=== PATIENT | female | born 1940 | race Caucasian/White ===

== ENCOUNTER 2018-02-19 19:21 | Inpatient (IN) | payer MEDICARE, OTHER ==
--- NOTE | 2018-02-19 19:37 | PDOC ---
Rapid Medical Evaluation Time Seen by Provider: 02/19/18 19:31 Medical Evaluation: 02/19/18 19:32 I have performed a brief in-person evaluation of this patient. The patient presents with a chief complaint of: abd pain w/ n/v/, fever and anorexia x 4 days. H/o IDDM, HTN and HLD Pertinent physical exam findings:Febrile to 100.5 w/ ttp to LLQ I have ordered the following:labs The patient will proceed to the ED for further evaluation. Discharge Disposition - Diagnosis Abdominal pain Qualifiers: Abdominal location: left lower quadrant Qualified Code(s): R10.32 - Left lower quadrant pain - Referrals - Patient Instructions - Post Discharge Activity
[2018-02-19 20:00] LABS: BASO % 0.2 % (0-2.0); EOS % 0.6 % (0-4.5); HEMATOCRIT 34.5 % (32.4-45.2); HEMOGLOBIN 11.5 GM/dL (10.7-15.3); LYMPH % 6.5 % (8-40); MCH 30.2 pg (25.7-33.7); MCHC 33.5 g/dl (32.0-36.0); MEAN CELL VOLUME 90.2 fl (80-96); MEAN PLT VOLUME 7.3 fl (7.5-11.1); MONO % 9.3 % (3.8-10.2); NEUT % 83.4 % (42.8-82.8); PLATELET COUNT 222 K/MM3 (134-434); RBC 3.82 M/mm3 (3.60-5.2); RDW 13.1 % (11.6-15.6)
[2018-02-19 20:26] LABS: ALBUMIN 2.3 g/dl (3.4-5.0); ALK PHOS 268 U/L (45-117); ANION GAP 8 (8-16); BILIRUBIN,TOTAL 0.4 mg/dL (0.2-1.0); BLOOD UREA NITROGEN 29 mg/dL (7-18); CHLORIDE 96 mmol/L (98-107); CO2 27 mmol/L (21-32); CREATININE 1.6 mg/dL (0.55-1.02); GLUCOSE,RANDOM 148 mg/dL (74-106); LIPASE 164 U/L (73-393); SGPT/ALT 48 U/L (12-78); SODIUM 131 mmol/L (136-145); TOT PROT 6.4 g/dl (6.4-8.2)
[2018-02-19 20:27] LABS: POTASSIUM 4.4 mmol/L (3.5-5.1); SGOT/AST 102 U/L (15-37)
--- NOTE | 2018-02-19 21:07 | PDOC ---
Attending Attestation - ED Attending Attestation I have performed the following: I have examined & evaluated the patient, The case was reviewed & discussed with the resident, I agree w/resident's findings & plan, Exceptions are as noted - Medical Decision Making 02/19/18 21:50 Documentation prepared by Amita Kessler, acting as medical coding auditor for Connie Cain MD. <Amita Kessler - Last Filed: 02/19/18 21:50> - HPI HPI: 02/20/18 01:31 pt presents to the ED complaining of generalized weakness and maliase, accompanied by mild dysuria. family reports that patient has severely decreased appetite, although she doesnt have nausea or vomiting. Febrile in the ED. - Physicial Exam PE: 02/20/18 01:34 Agree with resident exam. Pt is alert and in no acute distress. Lungs are clear. Abdomen is soft, non tender and non distended. 02/20/18 01:35 - Medical Decision Making 02/20/18 01:35 Pt presents to the Ed complaining of weakness and generalized malaise. Febrile. Will check labs and Ua, treat with Iv antibiotics and admit to medicine. <Connie Cian - Last Filed: 02/20/18 01:41>
[2018-02-19] MEDS ORDERED: SODIUM CHLORIDE 1,000 ML IV STA (21:14)
--- NOTE | 2018-02-19 22:37 | PDOC ---
History of Present Illness - General Chief Complaint: Pain Stated Complaint: FATIGUE/CYST Time Seen by Provider: 02/19/18 19:31 History Source: Patient Exam Limitations: No Limitations - History of Present Illness Initial Comments: 02/19/18 22:56 77F with H/o IDDM, HTN and HLD presents with abd pain w/ n/v/, fever and anorexia and x 4 days. Also complains of little ball in abdomen that comes and go with bowel movement. Last fingerstick at home was 258 despite 4 days anorexia. Past History - Past Medical History Allergies/Adverse Reactions: Allergies Allergy/AdvReac Type Severity Reaction Status Date / Time No Known Allergies Allergy Verified 02/19/18 19:34 - Suicide/Smoking/Psychosocial Hx Smoking History: Never smoked Review of Systems - Review of Systems Able to Perform ROS?: Yes Constitutional: Yes: Fever, Loss of Appetite HEENTM: No: Symptoms Reported Respiratory: No: Symptoms reported Cardiac (ROS): No: Symptoms Reported ABD/GI: No: Symptoms Reported : Yes: Dysuria *Physical Exam - Vital Signs Last Vital Signs Temp Pulse Resp BP Pulse Ox 100.5 F H 91 H 18 108/66 99 02/19/18 19:35 02/19/18 19:35 02/19/18 19:35 02/19/18 19:35 02/19/18 19:35 - Physical Exam General Appearance: Yes: Disheveled, Moderate Distress HEENT: positive: EOMI, NARAYAN Respiratory/Chest: positive: Lungs Clear, Normal Breath Sounds. negative: Chest Tender, Respiratory Distress Cardiovascular: positive: Regular Rhythm, Regular Rate, S1, S2 Gastrointestinal/Abdominal: positive: Normal Bowel Sounds, Flat, Soft. negative : Tender Musculoskeletal: positive: Normal Inspection. negative: CVA Tenderness Integumentary: positive: Normal Color, Dry, Warm ED Treatment Course - LABORATORY CBC & Chemistry Diagram: 02/19/18 19:51 02/19/18 19:51 - ADDITIONAL ORDERS Additional order review: Laboratory Results 02/19/18 02/19/18 21:25 19:51 Sodium 131 L Potassium 4.4 Chloride 96 L Carbon Dioxide 27 Anion Gap 8 BUN 29 H Creatinine 1.6 H Creat Clearance w eGFR 31.17 Random Glucose 148 H Lactic Acid 1.8 Calcium 8.0 L Total Bilirubin 0.4 AST 102 H ALT 48 Alkaline Phosphatase 268 H Total Protein 6.4 Albumin 2.3 L Lipase 164 02/19/18 19:51 RBC 3.82 MCV 90.2 MCHC 33.5 RDW 13.1 MPV 7.3 L Neutrophils % 83.4 H Lymphocytes % 6.5 L Monocytes % 9.3 Eosinophils % 0.6 Basophils % 0.2 - RADIOLOGY Radiology Studies Ordered: Category Date Time Status CHEST X-RAY PORTABLE* [RAD] Stat Radiology 02/19/18 21:14 Ordered - Medications Given in the ED: ED Medications Discontinued Medications Generic Name Dose Route Start Last Admin Trade Name Freq PRN Reason Stop Dose Admin Sodium Chloride 1,000 mls @ 1,000 mls/hr 02/19/18 21:14 02/19/18 21:31 Normal Saline - IV 02/19/18 22:13 1,000 mls/hr ASDIR STA Administration Medical Decision Making - Medical Decision Making 02/20/18 04:27 Patient accepted straight catheterization and subsequently Lee insertion after previously refusing it. 02/20/18 06:28 Patient showed fever and elevated white count without a source (before urine could be obtained) Started fluids and abx 02/20/18 06:29 Admit to med surg *DC/Admit/Observation/Transfer Diagnosis at time of Disposition: Abdominal pain Qualifiers: Abdominal location: left lower quadrant Qualified Code(s): R10.32 - Left lower quadrant pain - Discharge Dispostion Decision to Admit order: Yes - Referrals - Patient Instructions - Post Discharge Activity
[2018-02-20] MEDS ORDERED: ACETAMINOPHEN 500 MG TABLET (FP) PO ONE (02:14)
[2018-02-20] MEDS ORDERED: SODIUM CHLORIDE 0.9% 500 ML INFUS.BAG IV ONE (02:14)
[2018-02-20] MEDS ORDERED: ACETAMINOPHEN 325 MG TABLET (FP) PO ONE (02:15)
[2018-02-20] MEDS ORDERED: ACETAMINOPHEN 325 MG TABLET (FP) ONE (02:15)
[2018-02-20 02:46] LABS: ACANTHOCYTES 0; ANISOCYTOSIS 0; HELMET CELLS 0; HOWELL-JOLLY BODIES 0; MACROCYTOSIS 0; OVALOCYTE 0; PLATELET ESTIMATE DECREASED; ROULEAU 0; SICKELED CELLS 0; TARGET CELLS 0; TEAR DROP CELLS 0; TOXIC GRANULATION 0
[2018-02-20] MEDS ORDERED: cefTRIAXone SODIUM 1 GM VIAL ONE ×2 (04:13→17:02)
--- NOTE | 2018-02-20 04:51 | PN ---
Teaching Attending Note Name of Resident: Trudi Damon ATTENDING PHYSICIAN STATEMENT I saw and evaluated the patient. I reviewed the resident's note and discussed the case with the resident. I agree with the resident's findings and plan as documented. SUBJECTIVE: Patient is a 77 year old Polish-speaking woman who jsu came from [facility], with history of insulin-treated DM, HTN and HLD complaining of dysuria for 3 months?, and nausea. She has mild lower abdominal pain, recent fever and feels like there is a little ball in her abdomen that comes and goes with bowel movement. Her last BM was yesterday. No vomiting or diarrhea. Noted to have urinary retention in the ER. OBJECTIVE: Alert and in no acute distress. Vital Signs Period Temp Pulse Resp BP Sys/[place] Pulse Ox Last 24 Hr 98.3 F-101.6 F 66-91 18-18 108-128/49-69 98-99 HEENT: No Jaundice, eye redness or discharge, PERRLA, EOMI. Normocephalic, atraumatic. External ears are normal and hearing is grossly intact. No nasal discharge. Neck: Supple, nontender. No palpable adenopathy or thyromegaly. No JVD Chest: Good effort. Clear to auscultation and percussion. Heart: Regular. No S3, rub or murmur Abdomen: Suprapubic fullness, nontender;, soft abdomen, nontender and no HSM. No rebound or guarding. Normoactive bowel sounds. Ext: Peripheral pulses intact. No leg edema, but mild LLE tenderness. Skin: Warm and dry. No petechiae, rash or ecchymosis. Neuro: Alert. Oriented person and place. CN 2-12 grossly intact. Sensation grossly intact in all four extremities and DTR are symmetric. Abnormal Lab Results 02/19/18 02/19/18 19:51 19:51 WBC 15.0 H MPV 7.3 L Neutrophils % 83.4 H Lymphocytes % 6.5 L Monocytes % (Manual) 2 L Sodium 131 L Chloride 96 L BUN 29 H Creatinine 1.6 H Random Glucose 148 H Calcium 8.0 L AST 102 H Alkaline Phosphatase 268 H Albumin 2.3 L ASSESSMENT AND PLAN: 1. Sepsis due to UTI - Her urinalysis is pending but her urine is very cloudy. She got IV Rocephin in the ER - will continue same at 1 gm q 24 hours pending culture results. Continue IV NS at 100 ml/hour - and reassess frequently to avoid fluid overload. 2. EVA and Urinary retention - Produced 2 liters of urine upon insertion of reyes. May explain the EVA. Will continue to monitor BMP, avoid nephrotoxic drugs and consult nephrology and urology. 3. Suprapubic fullness - Will get CT scan of abdomen and pelvis. 4. DM - Will do sliding scale insulin coverage. Family ahs been asked to bring in her medications since we do not have her list of medications. 5. Mild LLE tenderness - Doppler to rule out DVT. 6. DVT prophylaxis - Heparin 5000u sq tid 7. Advance directives - Full code
[2018-02-20 04:57] LABS: URINE APPEARANCE CLOUDY; URINE BILIRUBIN NEGATIVE (<2.0 mg/dL); URINE COLOR YELLOW; URINE GLUCOSE (UA) 3+ (NEGATIVE); URINE KETONE TRACE (NEGATIVE); URINE NITRITE NEGATIVE (NEGATIVE); URINE UROBILINOGEN NEGATIVE mg/dL (0.2-1.0)
[2018-02-20 04:59] LABS: URINE LEUK ESTERASE 3+ (NEGATIVE); URINE PROTEIN 2+ (NEGATIVE)
[2018-02-20] MEDS ORDERED: SODIUM CHLORIDE 1,000 ML IV SCH (06:00)
[2018-02-20 06:10] LABS: URINE MUCUS RARE
--- NOTE | 2018-02-20 06:15 | HP ---
CHIEF COMPLAINT: dysuria x 3 months PCP: From [place] HISTORY OF PRESENT ILLNESS: 77 y/o F with PMH DM, HTN, HLD, who presents to the ED c/o dysuria, fever, and nausea. As per pt, over the past three months she has had dysuria. She is unable to quantify whether she had frequency during this time. Granddaughter explains that while pt was in [place], she was seen by various physicians who were "unable to find out what was wrong" with her. Pt states that she had blood taken on numerous occasions for this reason and had an "infection" in her urine before. More recently, pt with nausea (without emesis), fever, decreased appetite, and diffuse abdominal pain over the last 2-3 days. She also c/o new "left corey pain." Denies JAUREGUI, chills, SOB, chest pain or pressure, or changes in bowel function. Pt lives in [place] and has been in the [facility] for the past 1-2 months visiting family. Granddaughter states that she is leaving to go back home on 08/31. ER course was notable for: (1) Rocephin 1g x 1 (2) NS (3) Tylenol 1g x2 (4) urinary retention, reyes Recent Travel: came to the [facility] for vacation 1-2 months prior PAST MEDICAL HISTORY: as above PAST SURGICAL HISTORY: denies Social History: Smoking: denies Alcohol: denies Drugs: denies Family History: non-contributory Allergies No Known Allergies Allergy (Verified 02/19/18 19:34) HOME MEDICATIONS: Pt is on no home medications as per pt and granddaughter. REVIEW OF SYSTEMS CONSTITUTIONAL: +fever, decreased appetite Absent: chills, diaphoresis, generalized weakness, malaise, weight change HEENT: Absent: rhinorrhea, nasal congestion, throat pain, throat swelling, difficulty swallowing, mouth swelling, ear pain, eye pain, visual changes CARDIOVASCULAR: Absent: chest pain, syncope, palpitations, irregular heart rate, lightheadedness , peripheral edema RESPIRATORY: Absent: cough, shortness of breath, dyspnea with exertion, orthopnea, wheezing, stridor, hemoptysis GASTROINTESTINAL: Absent: abdominal pain, abdominal distension, nausea, vomiting, diarrhea, constipation, melena, hematochezia GENITOURINARY: +dysuria Absent: frequency, urgency, hesitancy, hematuria, flank pain, genital pain MUSCULOSKELETAL: +LLE pain Absent: myalgia, arthralgia, joint swelling, back pain, neck pain SKIN: Absent: rash, itching, pallor HEMATOLOGIC/IMMUNOLOGIC: Absent: easy bleeding, easy bruising, lymphadenopathy, frequent infections ENDOCRINE: Absent: unexplained weight gain, unexplained weight loss, heat intolerance, cold intolerance NEUROLOGIC: Absent: headache, focal weakness or paresthesias, dizziness, unsteady gait, seizure, mental status changes, bladder or bowel incontinence PSYCHIATRIC: Absent: anxiety, depression, suicidal or homicidal ideation, hallucinations. PHYSICAL EXAMINATION Vital Signs - 24 hr 02/19/18 02/20/18 02/20/18 19:35 02:38 05:40 Temperature 100.5 F H 101.6 F H 98.3 F Pulse Rate 91 H 66 Pulse Rate [ 83 Apical] Respiratory 18 18 18 Rate Blood Pressure 108/66 128/69 Blood Pressure 118/49 [Right Arm] O2 Sat by Pulse 99 98 98 Oximetry (%) GENERAL: Resting comfortably in bed. Granddaughter at bedside. Awake, alert, and fully oriented, in no acute distress. HEAD: Normal with no signs of trauma. EYES: Pupils equal, round and reactive to light, extraocular movements intact, sclera anicteric, conjunctiva clear. EARS, NOSE, THROAT: Ears normal, nares patent, oropharynx clear without exudates. Moist mucous membranes. NECK: Normal range of motion, supple without lymphadenopathy LUNGS: Breath sounds equal, clear to auscultation bilaterally. No wheezes, and no crackles. No accessory muscle use. HEART: Regular rate and rhythm, normal S1 and S2 without murmur, rub or gallop. ABDOMEN: Soft, nontender, not distended, +fullness in suprapubic region, normoactive bowel sounds, no guarding, no rebound LOWER EXTREMITIES: 2+ dp pulses, warm, well-perfused. +diffuse LLE tenderness. No peripheral edema. NEUROLOGICAL: Cranial nerves II-XII intact. Normal speech. Azeri speaking GENITOURINARY: +reyes, with yellow serous urine, and collection of pus PSYCHIATRIC: Cooperative. Good eye contact. SKIN: Warm, dry, normal turgor Laboratory Results 02/19/18 19:51 WBC 15.0 H Hgb 11.5 Hct 34.5 Plt Count 222 Neutrophils % 83.4 H 02/19/18 02/19/18 19:51 19:51 Sodium 131 L Potassium 4.4 Chloride 96 L Carbon Dioxide 27 BUN 29 H Creatinine 1.6 H Alkaline Phosphatase 268 H Troponin I < 0.02 Albumin 2.3 L Lipase 164 02/20/18 04:48 Urine Protein 2+ H Urine Glucose (UA) 3+ H Urine Ketones Trace H Urine Blood 2+ H Urine Nitrite Negative Urine Bilirubin Negative Urine Urobilinogen Negative Ur Leukocyte Esterase 3+ H Urine WBC (Auto) Pending Microbiology 02/20/18: Urine cx - pending 02/20/18: Blood cx-pending Imaging 02/19/17 CXR: cardiomegaly, possible mild congestion ASSESSMENT/PLAN: 77 y/o F with PMH DM, HTN, HLD, who presents to the ED c/o dysuria, fever, and nausea. Pt admitted for sepsis 2/2 UTI, r/o alternate abdominal pathology. #Sepsis 2/2 UTI -febrile to 100.5F, WBC ct 15k, with dysuria -UA 3+ leuk esterase, 2+ blood, UA WBC pending -received rocephin 1g x 1 in ED -will continue rocephin 1g IVPB qd -Lactic acid WNL (1.8) -IVF -F/u ucx, blood cx #EVA possible 2/2 poor PO intake, pre-renal -Cr 1.6 -unclear what pt's baseline is -may be related to urinary retention -Nephro consult- Dr. Oliveira -Urology consult- Dr. Chaudhary #Urinary retention -Pt with suprapubic fullness -will F/u CTAP w/o contrast to determine if alternate abd pathology -?may explain multiple months of dysuria -?r/o fistula formation -currently with reyes to prevent increased retention #LLE TTP, r/o DVT -Pt with increased sensitivity in LLE, new (+) varicose veins -F/u duplex LLE #DM -Pt not on medication -F/u A1c -ISS ACHS -BGM #HTN-controlled #HLD -F/u lipid profile #F/E/N IV NS 100 cc/hr continue to follow lytes sodium controlled, diabetic diet #PPX Hep 5000 U SQ TID #Dispo admit to med-surg Visit type - Emergency Visit Emergency Visit: Yes ED Registration Date: 02/20/18 Care time: The patient presented to the Emergency Department on the above date and was hospitalized for further evaluation of their emergent condition. - New Patient This patient is new to me today: Yes Date on this admission: 02/20/18 - Critical Care Critical Care patient: No Hospitalist Screening - Colonoscopy Questionnaire Colonoscopy Questionnaire: Colonoscopy Questionnaire - Patient: 50 - 75 years old and never had a screening colonoscopy: Unknown History of colon or rectal polyps, or CA: Unknown History of IBD, Crohn's disease or UC: Unknown History of abdominal radiation therapy as a child: Unknown - Relative: 1 with colon or rectal CA, or polyps at age 60 or younger: Unknown Colon or rectal CA diagnosed at age 45 or younger: Unknown Multiple relatives with colon or rectal CA: Unknown - Outcome: Screening Result: Negative Screen
[2018-02-20] MEDS ORDERED: CEFTRIAXONE 1 GM/50 ML BAG ONE (06:27)
[2018-02-20] MEDS ORDERED: HEPARIN NA (PORCINE) 5,000 UNITS/ML 1ML VIAL ONE (06:27)
[2018-02-20] MEDS: HEPARIN NA (PORCINE) 5,000 UNITS/ML 1ML VIAL SQ SCH ×3 (06:37→22:17)
[2018-02-20 08:37] LABS: BASO % 0.3 % (0-2.0); EOS % 1.2 % (0-4.5); LYMPH % 6.6 % (8-40); MCH 30.5 pg (25.7-33.7); MCHC 33.4 g/dl (32.0-36.0); MEAN CELL VOLUME 91.3 fl (80-96); MEAN PLT VOLUME 7.5 fl (7.5-11.1); MONO % 7.1 % (3.8-10.2); NEUT % 84.8 % (42.8-82.8); PLATELET COUNT 185 K/MM3 (134-434); RBC 3.61 M/mm3 (3.60-5.2); RDW 13.5 % (11.6-15.6); WHITE BLOOD COUNT 12.8 K/mm3 (4.0-10.0)
[2018-02-20 09:10] LABS: CHOLESTEROL < 50 mg/dL (50-200); TRIGLYCERIDES 128 mg/dL (35-160)
[2018-02-20 09:11] LABS: ANION GAP 10 (8-16); BLOOD UREA NITROGEN 28 mg/dL (7-18); CALCIUM 7.8 mg/dL (8.5-10.1); CHLORIDE 100 mmol/L (98-107); CO2 23 mmol/L (21-32); CREATININE 1.3 mg/dL (0.55-1.02); GLUCOSE,RANDOM 187 mg/dL (74-106); MAGNESIUM 1.9 mg/dL (1.8-2.4); POTASSIUM 3.9 mmol/L (3.5-5.1); SODIUM 133 mmol/L (136-145)
[2018-02-20 09:12] LABS: PHOSPHOROUS 3.2 mg/dL (2.5-4.9)
[2018-02-20 09:53] LABS: HDL CHOLESTEROL 9 mg/dL (40-60)
--- NOTE | 2018-02-20 10:11 | PN ---
Physical Exam: SUBJECTIVE: Patient seen and examined Patient is feeling cold, otherwise has no complains. covered under thick blanket. OBJECTIVE: Vital Signs Temperature 98 F 02/20/18 07:58 Pulse Rate 20 L 02/20/18 07:58 Respiratory Rate 64 H 02/20/18 07:58 Blood Pressure 123/62 02/20/18 07:58 O2 Sat by Pulse Oximetry (%) 97 02/20/18 08:19 GENERAL: The patient is awake, alert, and fully oriented, in no acute distress. HEAD: Normal with no signs of trauma. EYES: PERRL, extraocular movements intact, sclera anicteric, conjunctiva clear. ENT: Ears normal, oropharynx clear without exudates, moist mucous membranes. NECK: Trachea midline, full range of motion, supple. LUNGS: Breath sounds equal, clear to auscultation bilaterally, no wheezes, no crackles, no accessory muscle use. HEART: Regular rate and rhythm, S1, S2 without murmur, rub or gallop. ABDOMEN: Soft, nontender, nondistended, normoactive bowel sounds, no guarding, no rebound, no hepatosplenomegaly, no masses. EXTREMITIES: 2+ pulses, warm, well-perfused, no edema. NEUROLOGICAL: Cranial nerves II through XII grossly intact. Normal speech, gait not observed. PSYCH: Normal mood, normal affect. SKIN: Warm, dry, normal turgor, no rashes or lesions noted CBCD WBC 12.8 K/mm3 (4.0-10.0) H 02/20/18 07:55 RBC 3.61 M/mm3 (3.60-5.2) 02/20/18 07:55 Hgb 11.0 GM/dL (10.7-15.3) 02/20/18 07:55 Hct 33.0 % (32.4-45.2) 02/20/18 07:55 MCV 91.3 fl (80-96) 02/20/18 07:55 MCHC 33.4 g/dl (32.0-36.0) 02/20/18 07:55 RDW 13.5 % (11.6-15.6) 02/20/18 07:55 Plt Count 185 K/MM3 (134-434) 02/20/18 07:55 MPV 7.5 fl (7.5-11.1) 02/20/18 07:55 CMP Sodium 133 mmol/L (136-145) L 02/20/18 07:55 Potassium 3.9 mmol/L (3.5-5.1) 02/20/18 07:55 Chloride 100 mmol/L (98-107) 02/20/18 07:55 Carbon Dioxide 23 mmol/L (21-32) 02/20/18 07:55 Anion Gap 10 (8-16) 02/20/18 07:55 BUN 28 mg/dL (7-18) H 02/20/18 07:55 Creatinine 1.3 mg/dL (0.55-1.02) H 02/20/18 07:55 Creat Clearance w eGFR 31.17 (>60) 02/19/18 19:51 Random Glucose 187 mg/dL (74-106) H 02/20/18 07:55 Calcium 7.8 mg/dL (8.5-10.1) L 02/20/18 07:55 Total Bilirubin 0.4 mg/dL (0.2-1.0) 02/19/18 19:51 AST 102 U/L (15-37) H 02/19/18 19:51 ALT 48 U/L (12-78) 02/19/18 19:51 Alkaline Phosphatase 268 U/L (45-117) H 02/19/18 19:51 Total Protein 6.4 g/dl (6.4-8.2) 02/19/18 19:51 Albumin 2.3 g/dl (3.4-5.0) L 02/19/18 19:51 CARDIAC ENZYMES Troponin I < 0.02 ng/ml (0.00-0.05) 02/19/18 19:51 Active Medications Generic Name Dose Route Start Last Admin Trade Name Freq PRN Reason Stop Dose Admin Heparin Sodium (Porcine) 5,000 unit 02/20/18 06:00 02/20/18 06:37 Heparin - SQ 5,000 unit TID [facility] Administration Ceftriaxone Sodium 1 gm/ 50 mls @ 100 mls/hr 02/21/18 06:00 Dextrose IVPB DAILY@0600 DONG Sodium Chloride 1,000 mls @ 100 mls/hr 02/20/18 06:46 Normal Saline - IV ASDIR [facility] Urine Test Results Urine Color Yellow 02/20/18 04:48 Urine Appearance Cloudy 02/20/18 04:48 Urine pH 6.0 (5.0-8.0) 02/20/18 04:48 Ur Specific [place] 1.010 (1.001-1.035) 02/20/18 04:48 Urine Protein 2+ (NEGATIVE) H 02/20/18 04:48 Urine Glucose (UA) 3+ (NEGATIVE) H 02/20/18 04:48 Urine Ketones Trace (NEGATIVE) H 02/20/18 04:48 Urine Blood 2+ (NEGATIVE) H 02/20/18 04:48 Urine Nitrite Negative (NEGATIVE) 02/20/18 04:48 Urine Bilirubin Negative (<2.0 mg/dL) 02/20/18 04:48 Ur Leukocyte Esterase 3+ (NEGATIVE) H 02/20/18 04:48 Urine Mucus Rare 02/20/18 04:48 Microbiology: 02/20/18: Urine cx - pending ;02/20/18: Imagin02/19/17 CXR: cardiomegaly, possible mild congestion ASSESSMENT/PLAN: Patient is a 77 y/o F with PMHx DM, HTN, HLD, who presents to the ED c/o dysuria , fever, and nausea. Pt is admitted for sepsis with UTI. #Sepsis due to UTI on IV Rocephin increased the dose to 2gm IV daily since Bld cx is growing gram neg.bacilli , continue IVF, F/u ucx. #ARF on PO intake, Cr 1.6-->1.3 may be related to urinary retention; Nephro consult- Dr. Oliveira ,Urology consult- Dr. Chaudhary #Urinary retention with suprapubic fullness; as per urology , recommends that after her UTI is controlled that she is discharged either with reyes in place or that nursing teaches her clean intermittent self catheterization. #LLE duplex is negative #DM ; hemoglobin A1c 11.8 ;ISS ACHS; BGM #HTN-controlled #HLD F/u lipid profile PPX: Hep 5000 U SQ TID Visit type - Emergency Visit Emergency Visit: Yes ED Registration Date: 02/20/18 Care time: The patient presented to the Emergency Department on the above date and was hospitalized for further evaluation of their emergent condition. - New Patient This patient is new to me today: Yes Date on this admission: 02/20/18 - Critical Care Critical Care patient: No - Discharge Referral Referred to [facility] Med P.C.: No
[2018-02-20] MEDS: SODIUM CHLORIDE 1,000 ML IV SCH (10:51)
--- NOTE | 2018-02-20 11:25 | CONSULT ---
Consult Consult Specialty:: Nephrology ( Damon/ Tee) Reason for Consultation:: Acute kidney failure - History of Present Illness History of Present Illness: This is a 77 y/o F with PMH DM, HTN, HLD, who presented to the ED c/o dysuria, fever, and nausea. Reportedly she had dysuria for the past three months. While the pt was in [place], she was seen by various physicians who were "unable to find out what was wrong" with her. She was started on IV Abx with significant improvent of symptoms. Maintains good urine output. IV fluids well tolerated. - History Source History Provided By: Family Member Limitations to Obtaining History: Language Barrier - Past Medical History Cardio/Vascular: Yes: HTN Renal/: Yes: Renal Inusuff Musculoskeletal: Yes: Chronic low back pain - Alcohol/Substance Use Hx Alcohol Use: No - Smoking History Smoking history: Never smoked Have you smoked in the past 12 months: No Home Medications - Allergies Allergies/Adverse Reactions: Allergies Allergy/AdvReac Type Severity Reaction Status Date / Time No Known Allergies Allergy Verified 02/19/18 19:34 Family Disease History - Family Disease History Family History: Unable to Obtain Review of Systems - Review of Systems Constitutional: reports: Fever, Loss of Appetite, Weakness HENT: reports: No Symptoms Cardiovascular: denies: Chest Pain, Shortness of Breath Respiratory: denies: Cough Gastrointestinal: reports: Abdominal Pain. denies: Nausea, Rectal Bleeding Genitourinary: reports: Dysuria, Frequency, Urgency Musculoskeletal: reports: Back Pain Physical Exam Vital Signs: Vital Signs Temperature 98 F 02/20/18 07:58 Pulse Rate 20 L 02/20/18 07:58 Respiratory Rate 64 H 02/20/18 07:58 Blood Pressure 123/62 02/20/18 07:58 O2 Sat by Pulse Oximetry (%) 97 02/20/18 08:19 Constitutional: Yes: Anxious, Other ( speaking) Eyes: Yes: Conjunctiva Clear HENT: Yes: Atraumatic Neck: Yes: Trachea Midline Cardiovascular: Yes: Regular Rate and Rhythm, S1, S2 Respiratory: Yes: Regular, CTA Bilaterally Gastrointestinal: Yes: Normal Bowel Sounds, Soft Renal/: No: Bladder Distention, CVA Tenderness - Left, CVA Tenderness - Right , Hematuria Labs: CBC, BMP 02/20/18 07:55 02/20/18 07:55 Problem List - Problems (1) EVA (acute kidney injury) Code(s): N17.9 - ACUTE KIDNEY FAILURE, UNSPECIFIED (2) Diabetes mellitus Code(s): E11.9 - TYPE 2 DIABETES MELLITUS WITHOUT COMPLICATIONS (3) Abdominal pain Code(s): R10.9 - UNSPECIFIED ABDOMINAL PAIN Qualifiers: Abdominal location: left lower quadrant Qualified Code(s): R10.32 - Left lower quadrant pain (4) Hyperlipidemia Code(s): E78.5 - HYPERLIPIDEMIA, UNSPECIFIED (5) Hypertension Code(s): I10 - ESSENTIAL (PRIMARY) HYPERTENSION Assessment/Plan 77 y/o F with PMH DM, HTN, HLD, who presented with abdominal pain and dysuria. The patient started on IV fluids and IV antibiotics for possible urosepsis. Acute kidney Injury... Possibly related to the Septic process and the Renal hemodynamic changes. Suggest: IV hydration to continue. IV antibiotics as ordered. May not require extensive w/u. Will monitor the renal functions with you. Thank you. Meg Jose MD
--- NOTE | 2018-02-20 12:31 | CON.GU ---
Consult Consult Specialty:: Referred by:: medicine Reason for Consultation:: urinary retention, UTI - History of Present Illness Chief Complaint: urinary retention, UTI History of Present Illness: 77 year old woman who lives in [place] is admitted to the hospital who presented with complaints of abdominal pain and UTI. She was in urinary retention and the CT scan is consistent with a chronic neurogenic bladder with reflux. Reyes cath was placed with greater than 2 liters return. - History Source History Provided By: Family Member, Medical Record Limitations to Obtaining History: No Limitations - Past Medical History Cardio/Vascular: Yes: HTN Renal/: Yes: Renal Inusuff, Neurogenic Bladder, UTI Musculoskeletal: Yes: Chronic low back pain - Alcohol/Substance Use Hx Alcohol Use: No - Smoking History Smoking history: Never smoked Have you smoked in the past 12 months: No Home Medications - Allergies Allergies/Adverse Reactions: Allergies Allergy/AdvReac Type Severity Reaction Status Date / Time No Known Allergies Allergy Verified 02/19/18 19:34 Review of Systems - Review of Systems Constitutional: reports: Fever Gastrointestinal: reports: Abdominal Pain, Bloating Genitourinary: reports: Burning, Frequency, Incontinence Physical Exam- Vital Signs: Vital Signs Temperature 98 F 02/20/18 07:58 Pulse Rate 20 L 02/20/18 07:58 Respiratory Rate 64 H 02/20/18 07:58 Blood Pressure 123/62 02/20/18 07:58 O2 Sat by Pulse Oximetry (%) 97 02/20/18 08:19 Constitutional: Yes: Well Nourished, No Distress, Calm Respiratory: Yes: WNL, Regular, CTA Bilaterally Gastrointestinal: Yes: WNL, Normal Bowel Sounds Renal/: Yes: Reyes Present. No: Bladder Distention, CVA Tenderness - Left, CVA Tenderness - Right Labs: CBC, BMP 02/20/18 07:55 02/20/18 07:55 Imaging - Results Cat Scan: Report Reviewed Problem List - Problems (1) Neurogenic bladder Assessment/Plan: patient with a UTI and urinary retention consistent with a chronic neurogenic bladder. Patient lives in [place] and is visiting. Would recommend that after her UTI is controlled that she is discharged either with reyes in place or that nursing teaches her clean intermittent self catheterization. Code(s): N31.9 - NEUROMUSCULAR DYSFUNCTION OF BLADDER, UNSPECIFIED (2) EVA (acute kidney injury) Code(s): N17.9 - ACUTE KIDNEY FAILURE, UNSPECIFIED (3) UTI (urinary tract infection) Code(s): N39.0 - URINARY TRACT INFECTION, SITE NOT SPECIFIED
[2018-02-20] MEDS: INSULIN SLIDING SCALE (NOVOLOG) 1 VIAL SQ SCH ×3 (12:56→22:17)
[2018-02-20 13:25] VITALS: BMI 19.5
--- NOTE | 2018-02-20 14:37 | EKG ---
Test Reason : Blood Pressure : / mmHG Vent. Rate : 086 BPM Atrial Rate : 086 BPM P-R Int : 130 ms QRS Dur : 066 ms QT Int : 352 ms P-R-T Axes : 037 003 030 degrees QTc Int : 421 ms NORMAL SINUS RHYTHM LOW VOLTAGE QRS BORDERLINE ECG NO PREVIOUS ECGS AVAILABLE Confirmed by MD Elie, Gilbert ([id number]) on 02/20/2018 2:37:07 PM Referred By: Confirmed By:Gilbert Delgadillo MD
[2018-02-20] MEDS ORDERED: PNEUMOC 13-VAL CONJ-DIP CRM/PF 0.5 ML DISP.SYRIN IM ONE (15:00)
[2018-02-20] MEDS ORDERED: CEFTRIAXONE 1 GM in DEXTROSE 5%-WATER - 50 ML IVPB ONE (16:45)
[2018-02-20] MEDS ORDERED: DEXTROSE 5%-WATER - 50 ML IVPB ONE (17:02)
[2018-02-20] MEDS ORDERED: PT OWN MED DRAWER 7, Y5N ONE (20:56)
[2018-02-20] MEDS ORDERED: INSULIN (NOVOLOG) ASPART 100 UNITS/ML 10ML VIAL ONE (20:57)
[2018-02-21] MEDS ORDERED: DEXTROSE 5%-WATER 100 ML IVPB ONE (05:59)
[2018-02-21] MEDS ORDERED: CEFTRIAXONE 1 GM in DEXTROSE 5%-WATER - 50 ML IVPB SCH (06:00)
[2018-02-21] MEDS: CEFTRIAXONE 2 GM in DEXTROSE 5%-WATER 100 ML IVPB SCH (06:05)
[2018-02-21] MEDS: HEPARIN NA (PORCINE) 5,000 UNITS/ML 1ML VIAL SQ SCH ×3 (06:05→21:37)
[2018-02-21] MEDS: INSULIN SLIDING SCALE (NOVOLOG) 1 VIAL SQ SCH ×4 (06:07→21:37)
[2018-02-21] MEDS ORDERED: PT OWN MED DRAWER 7, Y5N ONE ×2 (06:50→17:02)
[2018-02-21 08:32] LABS: CHLORIDE 98 mmol/L (98-107); POTASSIUM 3.1 mmol/L (3.5-5.1); SODIUM 132 mmol/L (136-145)
[2018-02-21] MEDS: SODIUM CHLORIDE 1,000 ML IV SCH (08:39)
[2018-02-21 08:42] LABS: ALBUMIN 1.7 g/dl (3.4-5.0); ALK PHOS 223 U/L (45-117); ANION GAP 12 (8-16); BILIRUBIN,TOTAL 0.3 mg/dL (0.2-1.0); BLOOD UREA NITROGEN 19 mg/dL (7-18); CALCIUM 7.7 mg/dL (8.5-10.1); CO2 22 mmol/L (21-32); CREATININE 1.1 mg/dL (0.55-1.02); GLUCOSE,RANDOM 224 mg/dL (74-106); SGOT/AST 36 U/L (15-37); SGPT/ALT 34 U/L (12-78); TOT PROT 5.5 g/dl (6.4-8.2)
--- NOTE | 2018-02-21 09:40 | PN ---
<Harlan Mishra - Last Filed: 02/21/18 12:35> Physical Exam: SUBJECTIVE: Patient seen and examined at bedside. Granddaughter at bedside to translate. Pt feels better overall, no acute events overnight. No fevers, chills , abd pain. OBJECTIVE: Vital Signs Period Temp Pulse Resp BP Sys/[place] Pulse Ox Last 24 Hr 99.3 F-99.7 F 76-83 18-20 136-142/67-76 95 GENERAL: The patient is awake, alert, and fully oriented, in no acute distress. HEAD: Normal with no signs of trauma. EYES: extraocular movements intact ENT: Ears normal, nares patent. NECK: Trachea midline, full range of motion, supple. LUNGS: Breath sounds equal, clear to auscultation bilaterally HEART: Regular rate and rhythm, S1, S2 without murmur ABDOMEN: Soft, nontender, nondistended, normoactive bowel sounds EXTREMITIES: warm, well-perfused, no edema. NEUROLOGICAL:Normal speech, gait not observed. PSYCH: Normal mood, normal affect. SKIN: Warm, dry Laboratory Results - last 24 hr 02/20/18 02/20/18 02/20/18 07:55 07:55 12:12 PTT (Actin FS) 31.1 Sodium Potassium Chloride Carbon Dioxide Anion Gap BUN Creatinine Creat Clearance w eGFR POC Glucometer 293 Random Glucose Calcium Total Bilirubin AST ALT Alkaline Phosphatase Total Protein Albumin HDL Cholesterol 9 L 02/20/18 02/20/18 02/21/18 17:12 22:15 05:54 PTT (Actin FS) Sodium Potassium Chloride Carbon Dioxide Anion Gap BUN Creatinine Creat Clearance w eGFR POC Glucometer 200 247 206 Random Glucose Calcium Total Bilirubin AST ALT Alkaline Phosphatase Total Protein Albumin HDL Cholesterol 02/21/18 07:00 PTT (Actin FS) Sodium 132 L Potassium 3.1 L Chloride 98 Carbon Dioxide 22 Anion Gap 12 BUN 19 H Creatinine 1.1 H Creat Clearance w eGFR 48.04 POC Glucometer Random Glucose 224 H Calcium 7.7 L Total Bilirubin 0.3 D AST 36 ALT 34 Alkaline Phosphatase 223 H Total Protein 5.5 L Albumin 1.7 L HDL Cholesterol Active Medications Generic Name Dose Route Start Last Admin Trade Name Freq PRN Reason Stop Dose Admin Heparin Sodium (Porcine) 5,000 unit 02/20/18 06:00 02/21/18 06:05 Heparin - SQ 5,000 unit TID DONG Administration Sodium Chloride 1,000 mls @ 100 mls/hr 02/20/18 06:46 02/21/18 08:39 Normal Saline - IV 100 mls/hr ASDIR DONG Administration Ceftriaxone Sodium 2 gm/ 100 mls @ 200 mls/hr 02/21/18 06:00 02/21/18 06:05 Dextrose IVPB 200 mls/hr DAILY@0600 DONG Administration Insulin Aspart 1 vial 02/20/18 16:30 02/21/18 06:07 Novolog Vial Sliding Scale - SQ 2 units ACHS DONG Administration Protocol Potassium Chloride 40 meq 02/21/18 10:00 K-Dur - PO 02/21/18 10:01 ONCE ONE ASSESSMENT/PLAN: 77 y/o F with PMH DM, HTN, HLD, who presents to ER w/ c/o dysuria, fever, and nausea. Pt admitted for sepsis secondary to UTI. -Sepsis secondary to UTI -no fevers in last 24 hr, pt improving -c/w rocephin 2 g qd -ID consulted -BCx lactose fermenting gram neg bacilli -UCx pending -NS @ 100 ml/hr -EVA secondary to poor PO intake -Cr continues to improve, 1.1 today -will continue to monitor -Nephro on board -Urinary retention secondary to neurogenic bladder -Uro on board -Recs: Lee on d/c or will need nurse to teach her to do self- cathetherizations -DM -ISS, BGMs -LLE pain -negative for DVT -HTN -controlled at this time off meds -FEN -NS @ 100 ml/hr -K+ repleted, continue to monitor lytes -diabetic, sodium controlled diet -DVT ppx -Heparin 5000 units sq q8h -Dispo: -monitor on m/s Visit type - Emergency Visit Emergency Visit: Yes ED Registration Date: 02/20/18 Care time: The patient presented to the Emergency Department on the above date and was hospitalized for further evaluation of their emergent condition. - New Patient This patient is new to me today: Yes Date on this admission: 02/21/18 - Critical Care Critical Care patient: No <Steven Astudillo - Last Filed: 02/21/18 16:35> Physical Exam: Agree with the resident's plan. Continue Rocephin 2gm IV daily, ID consulted.
[2018-02-21] MEDS ORDERED: POTASSIUM CHLORIDE TABS 20 MEQ TABLET.ER (FP) PO ONE (10:00)
--- NOTE | 2018-02-21 10:51 | PN ---
Progress Note (short form) - Note Progress Note: ID Full note dictated Ceftriaxone Selected Entries 02/21/18 10:00 Temperature 99.2 F Pulse Rate 85 Respiratory 20 Rate Blood Pressure 113/60 Microbiology 02/20/18 00:58 Blood - Peripheral Venous Blood Culture - Preliminary Lactose Fermenting Neg Bacilli Lactose Fermenting Neg Bacilli#2 02/20/18 00:58 Blood - Peripheral Venous Blood Culture - Preliminary Lactose Fermenting Neg Bacilli Laboratory Tests 02/20/18 02/20/18 02/21/18 04:48 07:55 07:00 WBC 12.8 H Hgb 11.0 Plt Count 185 BUN 19 H Creatinine 1.1 H Creat Clearance w eGFR 48.04 Total Bilirubin 0.3 D Urine RBC (Auto) None Plan Continue Ceftriaxone as ordered pending c/s Lee management as per urology B[facility]IAO Problem List - Problems (1) Gram-negative bacteremia Code(s): R78.81 - BACTEREMIA (2) Diabetes mellitus Code(s): E11.9 - TYPE 2 DIABETES MELLITUS WITHOUT COMPLICATIONS (3) Neurogenic bladder Code(s): N31.9 - NEUROMUSCULAR DYSFUNCTION OF BLADDER, UNSPECIFIED (4) UTI (urinary tract infection) Code(s): N39.0 - URINARY TRACT INFECTION, SITE NOT SPECIFIED
--- NOTE | 2018-02-21 11:03 | PN ---
Progress Note, Physician Chief Complaint: The patient seen in her room. Reports feeling better. Lee catheter in place. Excellent urine output. Afebrile. History of Present Illness: This is a 77 y/o F with PMH DM, HTN, HLD, who presented to the ED c/o dysuria, fever, and nausea. Reportedly she had dysuria for the past three months. While the pt was in [place], she was seen by various physicians who were "unable to find out what was wrong" with her. She was started on IV Abx with significant improvent of symptoms. Maintains good urine output. Lee catheter draining copious amounts of urine. - Current Medication List Current Medications: Active Medications Heparin Sodium (Porcine) (Heparin -) 5,000 unit SQ TID [facility] Last Admin: 02/21/18 06:05 Dose: 5,000 unit Sodium Chloride (Normal Saline -) 1,000 mls @ 100 mls/hr IV ASDIR [facility] Last Admin: 02/21/18 08:39 Dose: 100 mls/hr Ceftriaxone Sodium 2 gm/ (Dextrose) 100 mls @ 200 mls/hr IVPB DAILY@0600 [facility] Last Admin: 02/21/18 06:05 Dose: 200 mls/hr Insulin Aspart (Novolog Vial Sliding Scale -) 1 vial SQ ACHS [facility]; Protocol Last Admin: 02/21/18 06:07 Dose: 2 units - Objective Vital Signs: Vital Signs Temperature 99.2 F 02/21/18 10:00 Pulse Rate 85 02/21/18 10:00 Respiratory Rate 20 02/21/18 10:00 Blood Pressure 113/60 02/21/18 10:00 O2 Sat by Pulse Oximetry (%) 95 02/20/18 21:00 Constitutional: Yes: Mild Distress Eyes: Yes: Conjunctiva Clear HENT: Yes: Normocephalic Neck: Yes: Trachea Midline Cardiovascular: Yes: S1, S2 Respiratory: Yes: CTA Bilaterally, Diminished Gastrointestinal: Yes: Normal Bowel Sounds, Soft Genitourinary: Yes: Lee Present. No: Bladder Distention, CVA Tenderness - Left, CVA Tenderness - Right Musculoskeletal: No: Joint Stiffness, Muscle Pain Extremities: No: Calf Tenderness Edema: No Labs: CBC, BMP 02/20/18 07:55 02/21/18 07:00 Problem List - Problems (1) EVA (acute kidney injury) Code(s): N17.9 - ACUTE KIDNEY FAILURE, UNSPECIFIED (2) Diabetes mellitus Code(s): E11.9 - TYPE 2 DIABETES MELLITUS WITHOUT COMPLICATIONS (3) Abdominal pain Code(s): R10.9 - UNSPECIFIED ABDOMINAL PAIN Qualifiers: Abdominal location: left lower quadrant Qualified Code(s): R10.32 - Left lower quadrant pain (4) Hyperlipidemia Code(s): E78.5 - HYPERLIPIDEMIA, UNSPECIFIED (5) Hypertension Code(s): I10 - ESSENTIAL (PRIMARY) HYPERTENSION (6) Neurogenic bladder Code(s): N31.9 - NEUROMUSCULAR DYSFUNCTION OF BLADDER, UNSPECIFIED Assessment/Plan 77 y/o F with PMH DM, HTN, HLD, who presented with abdominal pain and dysuria. The patient started on IV fluids and IV antibiotics for possible urosepsis. The patient has had Acute Urinary Retention from Neurogenic bladder. Lee catheter draing good amounts of urine. Acute kidney Injury... Possibly related to the Septic process, Nueurogenic bladder and the Renal hemodynamic changes. Suggest: Will stop IV fluids. Oral hydration. IV antibiotics as ordered. follow up noted. May not require extensive w/u. Will monitor the renal functions with you. Thank you. Meg Jose MD
[2018-02-21 11:38] LABS: BASO % 0.4 % (0-2.0); EOS % 0.7 % (0-4.5); HEMATOCRIT 33.9 % (32.4-45.2); HEMOGLOBIN 11.4 GM/dL (10.7-15.3); LYMPH % 5.6 % (8-40); MCH 30.7 pg (25.7-33.7); MCHC 33.7 g/dl (32.0-36.0); MEAN PLT VOLUME 7.5 fl (7.5-11.1); MONO % 7.1 % (3.8-10.2); NEUT % 86.2 % (42.8-82.8); PLATELET COUNT 194 K/MM3 (134-434); RBC 3.73 M/mm3 (3.60-5.2); RDW 13.6 % (11.6-15.6)
--- NOTE | 2018-02-21 12:57 | CONS ---
DATE OF CONSULTATION: DATE OF DICTATION: 02/21/2018 This is a 77-year-old woman who lives in [place] and is visiting family here in [place]. She presents to the emergency room with a chief complaint of abdominal pain and was diagnosed to have a urinary tract infection. She was found to be in urinary retention and a CAT scan showed what appeared to be chronic neurogenic bladder with reflux. A Lee catheter was placed with greater than 2 L of urine obtained subsequently. Blood cultures were drawn along with a urine culture and the blood cultures are positive for a lactose fermenting Gram-negative urban. Clinically she feels subjectively improved and is on ceftriaxone. She is a known insulin-dependent diabetic. PHYSICAL EXAMINATION: General: She was an alert female in no acute distress. Alert and oriented. Vital Signs: The T-max was 101.6 on admission but currently 99.2, pulse 85, blood pressure 130/60, and respirations 20. Neck: Supple. Lungs: Clear to percussion auscultation. Heart: S1, S2 regular rhythm without murmur. Abdomen: Soft, nontender without organomegaly. Extremities: Without clubbing, cyanosis or edema. Urinalysis with 3+ leukocyte esterase and 280 WBCs. White count on admission 15,000, hemoglobin 11.5, platelets 222 originally left shift with 15% bands. Chemistries: BUN 19, creatinine 1.1, alkaline phosphatase 223, and albumin 1.7. ASSESSMENT: 1. Insulin dependent mellitus. 2. Neurogenic bladder with urinary retention. 3. Urinary tract infection. 4. Gram-negative bacteremia related to urinary tract infection. PLAN: Clinically she is improving with continuous ceftriaxone 2 g daily pending final culture reports with further recommendations to follow. Management of Lee catheter as per Dr. [facility]. JORGITO CURTIS M.D. [id number]
[2018-02-21] MEDS ORDERED: ACETAMINOPHEN 325 MG TABLET (FP) PO ONE (21:00)
[2018-02-21] MEDS ORDERED: INSULIN (NOVOLOG) ASPART 100 UNITS/ML 10ML VIAL ONE (21:21)
[2018-02-22] MEDS ORDERED: DEXTROSE 5%-WATER 100 ML IVPB ONE (05:23)
[2018-02-22] MEDS: CEFTRIAXONE 2 GM in DEXTROSE 5%-WATER 100 ML IVPB SCH (05:40)
[2018-02-22] MEDS: HEPARIN NA (PORCINE) 5,000 UNITS/ML 1ML VIAL SQ SCH ×3 (05:40→22:10)
[2018-02-22] MEDS: INSULIN SLIDING SCALE (NOVOLOG) 1 VIAL SQ SCH ×4 (06:42→22:11)
[2018-02-22 08:14] LABS: BASO % 0.2 % (0-2.0); EOS % 0.6 % (0-4.5); HEMATOCRIT 34.2 % (32.4-45.2); HEMOGLOBIN 11.5 GM/dL (10.7-15.3); LYMPH % 3.5 % (8-40); MCH 30.7 pg (25.7-33.7); MCHC 33.6 g/dl (32.0-36.0); MEAN CELL VOLUME 91.4 fl (80-96); MONO % 4.2 % (3.8-10.2); NEUT % 91.5 % (42.8-82.8); PLATELET COUNT 231 K/MM3 (134-434); RBC 3.74 M/mm3 (3.60-5.2); RDW 13.8 % (11.6-15.6); WHITE BLOOD COUNT 22.8 K/mm3 (4.0-10.0)
--- NOTE | 2018-02-22 08:23 | PN ---
Progress Note (short form) - Note Progress Note: no complaints no fevers Vital Signs Period Temp Pulse Resp BP Sys/[place] Pulse Ox Last 24 Hr 97.5 F-99.6 F 74-85 17-20 113-147/60-95 95-96 cor-rrr lungs clear abd soft,nt ext no edema +reyes labs pending Microbiology 02/20/18 00:58 Blood - Peripheral Venous Blood Culture - Preliminary Lactose Fermenting Neg Bacilli Lactose Fermenting Neg Bacilli#2 02/20/18 00:58 Blood - Peripheral Venous Blood Culture - Preliminary Lactose Fermenting Neg Bacilli a/p gram negative bacteremia secondary to UTI urinary retention neurogenic bladder continue ceftriaxone f/u cultures fevers resolved still with elevated WBC yesterday, f/u cbc today
[2018-02-22 08:43] LABS: ALBUMIN 1.7 g/dl (3.4-5.0); ANION GAP 11 (8-16); BLOOD UREA NITROGEN 16 mg/dL (7-18); CALCIUM 7.7 mg/dL (8.5-10.1); CHLORIDE 95 mmol/L (98-107); CO2 24 mmol/L (21-32); GLUCOSE,RANDOM 282 mg/dL (74-106); POTASSIUM 3.3 mmol/L (3.5-5.1); SODIUM 130 mmol/L (136-145)
[2018-02-22 08:46] LABS: ALK PHOS 269 U/L (45-117); BILIRUBIN,TOTAL 0.4 mg/dL (0.2-1.0); SGOT/AST 41 U/L (15-37); SGPT/ALT 41 U/L (12-78); TOT PROT 5.7 g/dl (6.4-8.2)
[2018-02-22] MEDS ORDERED: POTASSIUM CHLORIDE TABS 20 MEQ TABLET.ER (FP) PO ONE (10:00)
--- NOTE | 2018-02-22 10:46 | PN ---
Progress Note, Physician Chief Complaint: The patient seen in her room. Reports feeling better. Lee catheter in place. Excellent urine output. Afebrile. Oral food intake minimal. History of Present Illness: This is a 77 y/o F with PMH DM, HTN, HLD, who presented to the ED c/o dysuria, fever, and nausea. Reportedly she had dysuria for the past three months. While the pt was in [place], she was seen by various physicians who were "unable to find out what was wrong" with her. She was started on IV Abx with significant improvent of symptoms Maintains good urine output. Lee catheter draining copious amounts of urine. - Current Medication List Current Medications: Active Medications Heparin Sodium (Porcine) (Heparin -) 5,000 unit SQ TID [facility] Last Admin: 02/22/18 05:40 Dose: 5,000 unit Ceftriaxone Sodium 2 gm/ (Dextrose) 100 mls @ 200 mls/hr IVPB DAILY@0600 [facility] Last Admin: 02/22/18 05:40 Dose: 200 mls/hr Insulin Aspart (Novolog Vial Sliding Scale -) 1 vial SQ ACHS [facility]; Protocol Last Admin: 02/22/18 06:42 Dose: 8 units Potassium Chloride (K-Dur -) 20 meq PO BID [facility] - Objective Vital Signs: Vital Signs Temperature 98.4 F 02/22/18 09:24 Pulse Rate 94 H 02/22/18 09:24 Respiratory Rate 20 02/22/18 09:24 Blood Pressure 115/69 02/22/18 09:24 O2 Sat by Pulse Oximetry (%) 96 02/21/18 21:00 Constitutional: Yes: No Distress, Anxious Eyes: Yes: Conjunctiva Clear HENT: Yes: Normocephalic Cardiovascular: Yes: S1, S2 Respiratory: Yes: CTA Bilaterally, Diminished Gastrointestinal: Yes: Normal Bowel Sounds Genitourinary: No: CVA Tenderness - Left, CVA Tenderness - Right Extremities: No: Calf Tenderness Neurological: Yes: Alert, Oriented Labs: CBC, BMP 02/22/18 07:00 02/22/18 07:00 Problem List - Problems (1) EVA (acute kidney injury) Code(s): N17.9 - ACUTE KIDNEY FAILURE, UNSPECIFIED (2) Diabetes mellitus Code(s): E11.9 - TYPE 2 DIABETES MELLITUS WITHOUT COMPLICATIONS (3) Abdominal pain Code(s): R10.9 - UNSPECIFIED ABDOMINAL PAIN Qualifiers: Abdominal location: left lower quadrant Qualified Code(s): R10.32 - Left lower quadrant pain (4) Hyperlipidemia Code(s): E78.5 - HYPERLIPIDEMIA, UNSPECIFIED (5) Hypertension Code(s): I10 - ESSENTIAL (PRIMARY) HYPERTENSION (6) Neurogenic bladder Code(s): N31.9 - NEUROMUSCULAR DYSFUNCTION OF BLADDER, UNSPECIFIED Assessment/Plan 77 y/o F with PMH DM, HTN, HLD, who presented with abdominal pain and dysuria. The patient started on IV fluids and IV antibiotics for possible urosepsis. The patient has had Acute Urinary Retention from Neurogenic bladder. Lee catheter draing good amounts of urine. Acute kidney Injury... Possibly related to the Septic process, Nueurogenic bladder and the Renal hemodynamic changes. Hypokalemia: Possibly due to increased K loss in the urine. Hyponatremia...possibly Chronic. ? Chr. SIADH. Suggest: KCl supplements. IV antibiotics as ordered. follow up noted. Will monitor the renal functions with you. Thank you. Meg Jose MD
[2018-02-22 12:09] LABS: PLATELET ESTIMATE NORMAL
[2018-02-22] MEDS ORDERED: POTASSIUM CHLORIDE TABS 20 MEQ TABLET.ER (FP) PO SCH (14:00)
[2018-02-22] MEDS: ERTAPENEM SODIUM 1 GM in SODIUM CHLORIDE 100 ML IVPB SCH (14:24)
[2018-02-22] MEDS ORDERED: INSULIN (NOVOLOG) ASPART 100 UNITS/ML 10ML VIAL ONE (17:58)
--- NOTE | 2018-02-22 18:05 | PN ---
<Trudi Damon - Last Filed: 02/22/18 18:06> Physical Exam: SUBJECTIVE: Patient seen and examined at bedside. Overnight, pt continued on IV abx. With reyes in, afebrile. Today, states that she "feels weak" and endorses subjective chills. Otherwise denies JAUREGUI, chest pain or pressure, abdominal pain, or dysuria. OBJECTIVE: Vital Signs Period Temp Pulse Resp BP Sys/[place] Pulse Ox Last 24 Hr 97.5 F-99.6 F 74-94 17-20 106-147/59-95 96-96 GENERAL: The patient is resting in bed with family at bedside. awake, alert, and fully oriented, in no acute distress. HEAD: Normal with no signs of trauma. EYES: PERRL, extraocular movements intact, sclera anicteric, conjunctiva clear. ENT: Ears normal, nares patent, oropharynx clear without exudates, moist mucous membranes. NECK: Trachea midline, supple. LUNGS: Breath sounds equal, clear to auscultation bilaterally, no wheezes, no crackles, no accessory muscle use. HEART: Regular rate and rhythm, S1, S2 without murmur, rub or gallop. ABDOMEN: Soft, nontender, nondistended, normoactive bowel sounds, no guarding, no rebound EXTREMITIES: 2+ dp,pt pulses, warm, well-perfused, no edema. NEUROLOGICAL: Cranial nerves II through XII grossly intact. : +reyes in place PSYCH: Normal mood, normal affect. SKIN: Warm, dry, normal turgor Laboratory Results - last 24 hr 02/21/18 02/22/18 02/22/18 21:35 06:38 07:00 WBC 22.8 H RBC 3.74 Hgb 11.5 Hct 34.2 MCV 91.4 MCH 30.7 MCHC 33.6 RDW 13.8 Plt Count 231 MPV 8.0 Absolute Neuts (auto) 20.9 Neutrophils % 91.5 H Neutrophils % (Manual) 87.8 H D Band Neutrophils % 0.0 Lymphocytes % 3.5 L D Lymphocytes % (Manual) 6.1 L D Monocytes % 4.2 Monocytes % (Manual) 3 L Eosinophils % 0.6 Eosinophils % (Manual) 2.0 D Basophils % 0.2 Basophils % (Manual) 0.0 Myelocytes % (Man) 0 D Promyelocytes % (Man) 0 Blast Cells % (Manual) 0 Nucleated RBC % 0 Metamyelocytes 1 D Platelet Estimate Normal Creat Clearance w eGFR POC Glucometer 340 311 Random Glucose Albumin 02/22/18 02/22/18 02/22/18 07:00 11:19 16:50 Platelet Estimate Sodium 130 L Potassium 3.3 L Chloride 95 L Carbon Dioxide 24 Anion Gap 11 BUN 16 Creatinine 1.0 Creat Clearance w eGFR 53.62 POC Glucometer 314 209 Random Glucose 282 H Calcium 7.7 L Total Bilirubin 0.4 D AST 41 H ALT 41 Alkaline Phosphatase 269 H Total Protein 5.7 L Albumin 1.7 L Active Medications Generic Name Dose Route Start Last Admin Trade Name Freq PRN Reason Stop Dose Admin Heparin Sodium (Porcine) 5,000 unit 02/20/18 06:00 02/22/18 14:30 Heparin - SQ 5,000 unit TID DONG Administration Ertapenem 1 gm/ Sodium 100 mls @ 200 mls/hr 02/22/18 12:45 02/22/18 14:24 Chloride IVPB 200 mls/hr DAILY DONG Administration Protocol Insulin Aspart 1 vial 02/20/18 16:30 02/22/18 16:54 Novolog Vial Sliding Scale - SQ 4 units ACHS [facility] Administration Protocol Potassium Chloride 20 meq 02/22/18 22:00 K-Dur - PO BID [facility] Microbiology 02/20/18 00:58 Blood - Peripheral Venous Blood Culture - Final Escherichia Coli Esbl Wire Frame Dipper 02/20/18 00:58 Blood - Peripheral Venous Blood Culture - Final Enterobacter Cloacae Lactose Fermenting Neg Bacilli#2 02/19/18 22:18 Urine - Urine Clean Catch Urine Culture - Preliminary Non Lactose Fermenting Gnb Lactose Fermenting Neg Bacilli Imaging 02/19/18 CXR: cardiomegaly, possible mild congestion 02/20/18: 1. extensive urinary bladder wall thickening with perivesical fat stranding is compatible with cystitis. reyes in place. gas in urinary bladder likely from recent reyes catheter placement. 2. bilateral moderate hydroureteronephrosis with periureteral and perinephric fat stranding L>R. these findings are suspicious for ascending pyelonephritis/ureteritis. please correlate clinically. no obstructing urinary tract calculus. the etiology of obstructive uropathy is not definitely identified on this noncontrast CT however may be secondary to extensive urinary bladder wall thickening. 3. mild cardiomegaly. small pericardial effusion trace layering bilateral pleural effusions. 4. pleural-based opacity in the medial L lung base is most likely atelectasis and or scarring. superimposed pneumonia or underlying mass lesion cannot be entirely excluded. 02/20/18: Duplex LLE: no evidence DVT. 1.6x0.8x0.6cm hypoechoic lesion/collection in L popliteal fossa which may be a Plasencia's cyst. ASSESSMENT/PLAN: 77 y/o F with PMH DM, HTN, HLD, who presents to the ED c/o dysuria, fever, and nausea. Pt admitted for sepsis 2/2 UTI, r/o alternate abdominal pathology. #Sepsis 2/2 UTI -received rocephin 1g x 1 in ED -switched from rocephin 1g IVPB qd > ertapenem 1g IVPB qd (Today is Day1) -Blood cx: (+) enterobacer, ESBL -isolation precautions -IVF -ID on board: Dr. Samuels #EVA possible 2/2 poor PO intake, pre-renal -Cr 1.6 on admission, has trended down to 1 -unclear what pt's baseline is -may be related to urinary retention -Nephro consult- Dr. Riley -Urology consult- Dr. Chaudhary #Chronic neurogenic bladder -Pt with suprapubic fullness -currently with reyes -will need d/c on reyes or self cath instruction #LLE TTP, r/o DVT -Pt with increased sensitivity in LLE, new (+) varicose veins -Duplex (-) for DVT #DM -Pt not on medication -F/u A1c -ISS ACHS -BGM #HTN-controlled #HLD -F/u lipid profile #F/E/N monitor off IV fluids continue to follow lytes sodium controlled, diabetic diet #PPX Hep 5000 U SQ TID #Dispo continued monitoring on med-surg Visit type - Emergency Visit Emergency Visit: No - New Patient This patient is new to me today: No - Critical Care Critical Care patient: No <Steven Astudillo - Last Filed: 02/22/18 21:01> Physical Exam: Agree with resident's note Vital Signs Temperature 97.6 F 02/22/18 18:00 Pulse Rate 82 02/22/18 18:00 Respiratory Rate 21 02/22/18 18:00 Blood Pressure 125/67 02/22/18 18:00 O2 Sat by Pulse Oximetry (%) 96 02/22/18 09:00 CBCD WBC 22.8 K/mm3 (4.0-10.0) H 02/22/18 07:00 RBC 3.74 M/mm3 (3.60-5.2) 02/22/18 07:00 Hgb 11.5 GM/dL (10.7-15.3) 02/22/18 07:00 Hct 34.2 % (32.4-45.2) 02/22/18 07:00 MCV 91.4 fl (80-96) 02/22/18 07:00 MCHC 33.6 g/dl (32.0-36.0) 02/22/18 07:00 RDW 13.8 % (11.6-15.6) 02/22/18 07:00 Plt Count 231 K/MM3 (134-434) 02/22/18 07:00 MPV 8.0 fl (7.5-11.1) 02/22/18 07:00 CMP Sodium 130 mmol/L (136-145) L 02/22/18 07:00 Potassium 3.3 mmol/L (3.5-5.1) L 02/22/18 07:00 Chloride 95 mmol/L (98-107) L 02/22/18 07:00 Carbon Dioxide 24 mmol/L (21-32) 02/22/18 07:00 Anion Gap 11 (8-16) 02/22/18 07:00 BUN 16 mg/dL (7-18) 02/22/18 07:00 Creatinine 1.0 mg/dL (0.55-1.02) 02/22/18 07:00 Creat Clearance w eGFR 53.62 (>60) 02/22/18 07:00 Random Glucose 282 mg/dL (74-106) H 02/22/18 07:00 Calcium 7.7 mg/dL (8.5-10.1) L 02/22/18 07:00 Total Bilirubin 0.4 mg/dL (0.2-1.0) D 02/22/18 07:00 AST 41 U/L (15-37) H 02/22/18 07:00 ALT 41 U/L (12-78) 02/22/18 07:00 Alkaline Phosphatase 269 U/L (45-117) H 02/22/18 07:00 Total Protein 5.7 g/dl (6.4-8.2) L 02/22/18 07:00 Albumin 1.7 g/dl (3.4-5.0) L 02/22/18 07:00 CARDIAC ENZYMES Troponin I < 0.02 ng/ml (0.00-0.05) 02/19/18 19:51 Current Medications Generic Name Dose Route Start Last Admin Trade Name Gueroq PRN Reason Stop Dose Admin Heparin Sodium (Porcine) 5,000 unit 02/20/18 06:00 02/22/18 14:30 Heparin - SQ 5,000 unit TID DONG Administration Ertapenem 1 gm/ Sodium 100 mls @ 200 mls/hr 02/22/18 12:45 02/22/18 14:24 Chloride IVPB 200 mls/hr DAILY DONG Administration Protocol Insulin Aspart 1 vial 02/20/18 16:30 02/22/18 16:54 Novolog Vial Sliding Scale - SQ 4 units ACHS [facility] Administration Protocol Potassium Chloride 20 meq 02/22/18 22:00 K-Dur - PO BID [facility] Home Medications Medication Instructions Recorded Insulin Detemir [Levemir Flextouch] 10 unit SQ BID 02/20/18 Lisinopril [Zestril] 2.5 mg PO DAILY 02/20/18 Metformin HCl [Metformin HCl ER] 1,000 tablet PO BIDAC 02/20/18 Novolog Flexpen 10 units SQ TIDCM 02/20/18 Rosuvastatin Calcium 20 tab PO DAILY 02/20/18 Sertraline HCl 25 tab PO DAILY 02/20/18
[2018-02-22] MEDS: POTASSIUM CHLORIDE TABS 20 MEQ TABLET.ER (FP) PO SCH (22:11)
[2018-02-23] MEDS: HEPARIN NA (PORCINE) 5,000 UNITS/ML 1ML VIAL SQ SCH ×3 (06:47→22:07)
[2018-02-23] MEDS: INSULIN SLIDING SCALE (NOVOLOG) 1 VIAL SQ SCH ×4 (06:47→22:08)
[2018-02-23 07:58] LABS: CHLORIDE 96 mmol/L (98-107); POTASSIUM 4.2 mmol/L (3.5-5.1); SODIUM 131 mmol/L (136-145)
[2018-02-23 08:41] LABS: ALBUMIN 1.7 g/dl (3.4-5.0); ALK PHOS 245 U/L (45-117); ANION GAP 14 (8-16); BILIRUBIN,TOTAL 0.9 mg/dL (0.2-1.0); BLOOD UREA NITROGEN 16 mg/dL (7-18); CALCIUM 7.6 mg/dL (8.5-10.1); CO2 21 mmol/L (21-32); CREATININE 0.9 mg/dL (0.55-1.02); GLUCOSE,RANDOM 227 mg/dL (74-106); MAGNESIUM 1.5 mg/dL (1.8-2.4); PHOSPHOROUS 2.5 mg/dL (2.5-4.9); SGOT/AST 34 U/L (15-37); SGPT/ALT 35 U/L (12-78); TOT PROT 5.5 g/dl (6.4-8.2)
[2018-02-23 08:53] LABS: BASO % 0.1 % (0-2.0); EOS % 1.7 % (0-4.5); HEMATOCRIT 34.3 % (32.4-45.2); HEMOGLOBIN 11.2 GM/dL (10.7-15.3); LYMPH % 7.4 % (8-40); MCH 30.1 pg (25.7-33.7); MCHC 32.8 g/dl (32.0-36.0); MEAN PLT VOLUME 8.2 fl (7.5-11.1); MONO % 8.7 % (3.8-10.2); NEUT % 82.1 % (42.8-82.8); PLATELET COUNT 237 K/MM3 (134-434); RBC 3.73 M/mm3 (3.60-5.2); RDW 13.7 % (11.6-15.6); WHITE BLOOD COUNT 21.9 K/mm3 (4.0-10.0)
[2018-02-23] MEDS: POTASSIUM CHLORIDE TABS 20 MEQ TABLET.ER (FP) PO SCH ×2 (09:22→22:07)
[2018-02-23] MEDS: INSULIN (LEVEMIR) 100 UNITS/ML UNITS SQ SCH ×2 (09:22→22:07)
[2018-02-23] MEDS: ERTAPENEM SODIUM 1 GM in SODIUM CHLORIDE 100 ML IVPB SCH (09:23)
[2018-02-23] MEDS ORDERED: INSULIN (LEVEMIR) 100 UNITS/ML UNITS SQ SCH (10:00)
[2018-02-23 10:34] LABS: ANISOCYTOSIS 1+; MACROCYTOSIS 1+; OVALOCYTE 1+; PLATELET ESTIMATE NORMAL
[2018-02-23] MEDS ORDERED: INSULIN (NOVOLOG) ASPART 100 UNITS/ML 10ML VIAL ONE ×2 (11:18→20:43)
[2018-02-23] MEDS ORDERED: MAGNESIUM SULF 50% (8.12 MEQ/2 ML-1 GM VIAL) IVPB ONE (11:30)
--- NOTE | 2018-02-23 13:59 | PN ---
Progress Note (short form) - Note Progress Note: no complaints no fevers ertapenem started yesterday Vital Signs Period Temp Pulse Resp BP Sys/[place] Pulse Ox Last 24 Hr 97.6 F-99.6 F 81-92 18-21 100-136/59-70 95 cor-rrr lungs clear abd soft,nt ext no edema +reyes with cloudy urine CBC, BMP 02/23/18 08:45 02/23/18 06:45 Microbiology 02/19/18 22:18 Urine - Urine Clean Catch Urine Culture - Final Enterobacter Cloacae Escherichia Coli Esbl Supervisor Communications And Signals 02/20/18 00:58 Blood - Peripheral Venous Blood Culture - Final Enterobacter Cloacae Lactose Fermenting Neg Bacilli#2 02/20/18 00:58 Blood - Peripheral Venous Blood Culture - Final Escherichia Coli Esbl Supervisor Communications And Signals a/p polymicrobial gram negative bacteremia secondary to UTI--ecoli esbl and enterobacter- switch to ertapenem-day #2 today urinary retention neurogenic bladder repeat blood cultures sent
--- NOTE | 2018-02-23 14:59 | PN ---
Physical Exam: SUBJECTIVE: Patient seen and examined at bedside. No acute events overnight. Today, pt still c/o abdominal pain and continued "weakness." Otherwise, denies other physical complaints. OBJECTIVE: Vital Signs Period Temp Pulse Resp BP Sys/[place] Pulse Ox Last 24 Hr 97.6 F-99.6 F 81-92 18-21 100-136/62-70 95 GENERAL: The patient is resting in bed. awake, alert, and fully oriented, in no acute distress. HEAD: Normal with no signs of trauma. EYES: PERRL, extraocular movements intact, sclera anicteric, conjunctiva clear. ENT: Ears normal, nares patent, oropharynx clear without exudates, moist mucous membranes. NECK: Trachea midline, supple. LUNGS: Breath sounds equal, clear to auscultation bilaterally, no wheezes, no crackles, no accessory muscle use. HEART: Regular rate and rhythm, S1, S2 without murmur, rub or gallop. ABDOMEN: Soft, nontender, nondistended, normoactive bowel sounds, no guarding, no rebound EXTREMITIES: 2+ pt pulses, warm, well-perfused, no edema. NEUROLOGICAL: Cranial nerves II through XII grossly intact. Laboratory Tests 02/23/18 02/23/18 06:45 08:45 WBC 21.9 H Hgb 11.2 Hct 34.3 Plt Count 237 Sodium 131 L Potassium 4.2 Chloride 96 L Carbon Dioxide 21 BUN 16 Creatinine 0.9 Random Glucose 227 H Alkaline Phosphatase 245 H Active Medications Generic Name Dose Route Start Last Admin Trade Name Freq PRN Reason Stop Dose Admin Heparin Sodium (Porcine) 5,000 unit 02/20/18 06:00 02/23/18 13:47 Heparin - SQ 5,000 unit TID DONG Administration Ertapenem 1 gm/ Sodium 100 mls @ 200 mls/hr 02/22/18 12:45 02/23/18 09:23 Chloride IVPB 200 mls/hr DAILY DONG Administration Protocol Insulin Aspart 1 vial 02/20/18 16:30 02/23/18 11:41 Novolog Vial Sliding Scale - SQ 10 units ACHS DONG Administration Protocol Insulin Detemir 10 units 02/23/18 22:00 Levemir Vial SQ HS DONG Insulin Detemir 10 units 02/23/18 10:00 02/23/18 09:22 Levemir Vial SQ 10 units DAILY DONG Administration Potassium Chloride 20 meq 02/22/18 22:00 02/23/18 09:22 K-Dur - PO 20 meq BID DONG Administration Microbiology 02/20/18 00:58 Blood - Peripheral Venous Blood Culture - Final Escherichia Coli Esbl Hemodialysis Technician 02/20/18 00:58 Blood - Peripheral Venous Blood Culture - Final Enterobacter Cloacae Lactose Fermenting Neg Bacilli#2 02/19/18 22:18 Urine - Urine Clean Catch Urine Culture - Final Enterobacter Cloacae Escherichia Coli Esbl Hemodialysis Technician Imaging 02/19/18 CXR: cardiomegaly, possible mild congestion 02/20/18: 1. extensive urinary bladder wall thickening with perivesical fat stranding is compatible with cystitis. reyes in place. gas in urinary bladder likely from recent reyes catheter placement. 2. bilateral moderate hydroureteronephrosis with periureteral and perinephric fat stranding L>R. these findings are suspicious for ascending pyelonephritis/ureteritis. please correlate clinically. no obstructing urinary tract calculus. the etiology of obstructive uropathy is not definitely identified on this noncontrast CT however may be secondary to extensive urinary bladder wall thickening. 3. mild cardiomegaly. small pericardial effusion trace layering bilateral pleural effusions. 4. pleural-based opacity in the medial L lung base is most likely atelectasis and or scarring. superimposed pneumonia or underlying mass lesion cannot be entirely excluded. 02/20/18: Duplex LLE: no evidence DVT. 1.6x0.8x0.6cm hypoechoic lesion/collection in L popliteal fossa which may be a Plasencia's cyst. ASSESSMENT/PLAN: 77 y/o F with PMH DM, HTN, HLD, who presents to the ED c/o dysuria, fever, and nausea. Pt admitted for sepsis 2/2 UTI, r/o alternate abdominal pathology. #Sepsis 2/2 UTI -white ct improving 21.9 from 22.8 -received rocephin 1g x 1 in ED -switched from rocephin 1g IVPB qd > ertapenem 1g IVPB qd (Today is Day 2) -Blood cx: (+) enterobacer, ESBL -Urine cx: enterobacter, ESBL -F/u repeat blood cx -isolation precautions -IVF -ID on board: Dr. Samuels #EVA possible 2/2 poor PO intake, pre-renal -Cr 1.6 on admission, has trended down to 0.9 -unclear what pt's baseline is -may be related to urinary retention -Nephro consult- Dr. Riley -Urology consult- Dr. Chaudhary #Chronic neurogenic bladder -Pt with suprapubic fullness -currently with reyes -will need d/c on reyes or self cath instruction #LLE TTP, r/o DVT -Pt with increased sensitivity in LLE, new (+) varicose veins -Duplex (-) for DVT #DM -Pt not on medication -F/u A1c -ISS ACHS; req 16U so far today -BGM #HTN-controlled #HLD -cholesterol<50 -HDL low (9) #F/E/N monitor off IV fluids continue to follow lytes sodium controlled, diabetic diet #PPX Hep 5000 U SQ TID #Dispo continued monitoring on med-surg will continue discussion with SW Visit type - Emergency Visit Emergency Visit: No - New Patient This patient is new to me today: No - Critical Care Critical Care patient: No
--- NOTE | 2018-02-23 15:05 | PN ---
Teaching Attending Note Name of Resident: Trudi Damon ATTENDING PHYSICIAN STATEMENT I saw and evaluated the patient. I reviewed the resident's note and discussed the case with the resident. I agree with the resident's findings and plan as documented. SUBJECTIVE: OBJECTIVE: Vital Signs Temperature 98 F 02/23/18 13:49 Pulse Rate 92 H 02/23/18 13:49 Respiratory Rate 18 02/23/18 13:49 Blood Pressure 100/62 02/23/18 13:49 O2 Sat by Pulse Oximetry (%) 95 02/22/18 21:00 CBCD WBC 21.9 K/mm3 (4.0-10.0) H 02/23/18 08:45 RBC 3.73 M/mm3 (3.60-5.2) 02/23/18 08:45 Hgb 11.2 GM/dL (10.7-15.3) 02/23/18 08:45 Hct 34.3 % (32.4-45.2) 02/23/18 08:45 MCV 92.0 fl (80-96) 02/23/18 08:45 MCHC 32.8 g/dl (32.0-36.0) 02/23/18 08:45 RDW 13.7 % (11.6-15.6) 02/23/18 08:45 Plt Count 237 K/MM3 (134-434) 02/23/18 08:45 MPV 8.2 fl (7.5-11.1) 02/23/18 08:45 CMP Sodium 131 mmol/L (136-145) L 02/23/18 06:45 Potassium 4.2 mmol/L (3.5-5.1) 02/23/18 06:45 Chloride 96 mmol/L (98-107) L 02/23/18 06:45 Carbon Dioxide 21 mmol/L (21-32) 02/23/18 06:45 Anion Gap 14 (8-16) 02/23/18 06:45 BUN 16 mg/dL (7-18) 02/23/18 06:45 Creatinine 0.9 mg/dL (0.55-1.02) 02/23/18 06:45 Creat Clearance w eGFR > 60 (>60) 02/23/18 06:45 Random Glucose 227 mg/dL (74-106) H 02/23/18 06:45 Calcium 7.6 mg/dL (8.5-10.1) L 02/23/18 06:45 Total Bilirubin 0.9 mg/dL (0.2-1.0) D 02/23/18 06:45 AST 34 U/L (15-37) 02/23/18 06:45 ALT 35 U/L (12-78) 02/23/18 06:45 Alkaline Phosphatase 245 U/L (45-117) H 02/23/18 06:45 Total Protein 5.5 g/dl (6.4-8.2) L 02/23/18 06:45 Albumin 1.7 g/dl (3.4-5.0) L 02/23/18 06:45 CARDIAC ENZYMES Troponin I < 0.02 ng/ml (0.00-0.05) 02/19/18 19:51 Current Medications Generic Name Dose Route Start Last Admin Trade Name Freq PRN Reason Stop Dose Admin Heparin Sodium (Porcine) 5,000 unit 02/20/18 06:00 02/23/18 13:47 Heparin - SQ 5,000 unit TID [facility] Administration Ertapenem 1 gm/ Sodium 100 mls @ 200 mls/hr 02/22/18 12:45 02/23/18 09:23 Chloride IVPB 200 mls/hr DAILY [facility] Administration Protocol Insulin Aspart 1 vial 02/20/18 16:30 02/23/18 11:41 Novolog Vial Sliding Scale - SQ 10 units ACHS DONG Administration Protocol Insulin Detemir 10 units 02/23/18 22:00 Levemir Vial SQ HS [facility] Insulin Detemir 10 units 02/23/18 10:00 02/23/18 09:22 Levemir Vial SQ 10 units DAILY DONG Administration Potassium Chloride 20 meq 02/22/18 22:00 02/23/18 09:22 K-Dur - PO 20 meq BID [facility] Administration Home Medications Medication Instructions Recorded Insulin Detemir [Levemir Flextouch] 10 unit SQ BID 02/20/18 Lisinopril [Zestril] 2.5 mg PO DAILY 02/20/18 Metformin HCl [Metformin HCl ER] 1,000 tablet PO BIDAC 02/20/18 Novolog Flexpen 10 units SQ TIDCM 02/20/18 Rosuvastatin Calcium 20 tab PO DAILY 02/20/18 Sertraline HCl 25 tab PO DAILY 02/20/18 Microbiology 02/19/18 22:18 Urine - Urine Clean Catch Urine Culture - Final Enterobacter Cloacae Escherichia Coli Esbl Bid Analyst 02/20/18 00:58 Blood - Peripheral Venous Blood Culture - Final Enterobacter Cloacae Lactose Fermenting Neg Bacilli#2 02/20/18 00:58 Blood - Peripheral Venous Blood Culture - Final Escherichia Coli Esbl Bid Analyst Imagin02/19/17 CXR: cardiomegaly, possible mild congestion Laboratory Tests 02/19/18 02/20/18 02/21/18 19:51 07:55 11:25 WBC 15.0 H 12.8 H 18.0 H D 02/22/18 02/23/18 07:00 08:45 WBC 22.8 H 21.9 H ASSESSMENT/PLAN: Patient is a 77 y/o F with PMHx DM, HTN, HLD, who presents to the ED c/o dysuria , fever, and nausea. Pt is admitted for sepsis with UTI. # Gram begative bacteremia Escherichia Coli Esbl Bid Analyst on Ertapenem sensitive to ,ID on the case , most likely total of 14 days of IV #Sepsis due to UTI/ G- bactermia on IV Ertapenem daily . #ARF on PO intake, Cr 1.6-->1.3-->0.9 today due to urinary retention; Nephro consult- Dr. Oliveira ,Urology consult- Dr. Chaudhary, patient has a reyes catheter #Urinary retention with suprapubic fullness; as per urology , recommends that after her UTI is controlled that she is discharged either with reyes in place or that nursing teaches her clean intermittent self catheterization. #LLE duplex is negative #DM ; hemoglobin A1c 11.8 ;on Levemir and ISS ACHS; BGM #HTN-controlled #HLD F/u lipid profile PPX: Hep 5000 U SQ TID
--- NOTE | 2018-02-23 15:18 | PN ---
Progress Note, Physician Chief Complaint: The patient seen in her room. Reports feeling better. Lee catheter in place. Excellent urine output. Afebrile. Oral food intake minimal. History of Present Illness: This is a 77 y/o F with PMH DM, HTN, HLD, who presented to the ED c/o dysuria, fever, and nausea. Reportedly she had dysuria for the past three months. While the pt was in [place], she was seen by various physicians who were "unable to find out what was wrong" with her. She was started on IV Abx with significant improvement of symptoms. Maintains good urine output. Lee catheter draining copious amounts of urine. - Current Medication List Current Medications: Active Medications Heparin Sodium (Porcine) (Heparin -) 5,000 unit SQ TID [facility] Last Admin: 02/23/18 13:47 Dose: 5,000 unit Ertapenem 1 gm/ Sodium (Chloride) 100 mls @ 200 mls/hr IVPB DAILY [facility]; Protocol Last Admin: 02/23/18 09:23 Dose: 200 mls/hr Insulin Aspart (Novolog Vial Sliding Scale -) 1 vial SQ ACHS [facility]; Protocol Last Admin: 02/23/18 11:41 Dose: 10 units Insulin Detemir (Levemir Vial) 10 units SQ HS DONG Insulin Detemir (Levemir Vial) 10 units SQ DAILY [facility] Last Admin: 02/23/18 09:22 Dose: 10 units Potassium Chloride (K-Dur -) 20 meq PO BID DONG Last Admin: 02/23/18 09:22 Dose: 20 meq - Objective Vital Signs: Vital Signs Temperature 98 F 02/23/18 13:49 Pulse Rate 92 H 02/23/18 13:49 Respiratory Rate 18 02/23/18 13:49 Blood Pressure 100/62 02/23/18 13:49 O2 Sat by Pulse Oximetry (%) 95 02/23/18 09:00 Constitutional: Yes: Calm Eyes: Yes: Conjunctiva Clear HENT: Yes: Normocephalic Neck: Yes: Trachea Midline Cardiovascular: Yes: S1, S2 Respiratory: Yes: CTA Bilaterally, Diminished Gastrointestinal: Yes: Normal Bowel Sounds, Soft, Tenderness Genitourinary: No: Bladder Distention, CVA Tenderness - Left, CVA Tenderness - Right Edema: No Labs: CBC, BMP 02/23/18 08:45 02/23/18 06:45 Problem List - Problems (1) EVA (acute kidney injury) Code(s): N17.9 - ACUTE KIDNEY FAILURE, UNSPECIFIED (2) Diabetes mellitus Code(s): E11.9 - TYPE 2 DIABETES MELLITUS WITHOUT COMPLICATIONS (3) Abdominal pain Code(s): R10.9 - UNSPECIFIED ABDOMINAL PAIN Qualifiers: Abdominal location: left lower quadrant Qualified Code(s): R10.32 - Left lower quadrant pain (4) Hyperlipidemia Code(s): E78.5 - HYPERLIPIDEMIA, UNSPECIFIED (5) Hypertension Code(s): I10 - ESSENTIAL (PRIMARY) HYPERTENSION (6) Neurogenic bladder Code(s): N31.9 - NEUROMUSCULAR DYSFUNCTION OF BLADDER, UNSPECIFIED Assessment/Plan 77 y/o F with PMH DM, HTN, HLD, who presented with abdominal pain and dysuria. The patient started on IV fluids and IV antibiotics for possible urosepsis. The patient has had Acute Urinary Retention from Neurogenic bladder.Renal functions at or close to her baseline. Acute kidney Injury... Possibly related to the Septic process, Nueurogenic bladder and the Renal hemodynamic changes. Hypokalemia: improved Hyponatremia...Stable. Chronic Suggest: KCl supplements. IV antibiotics as ordered. Will monitor the renal functions with you. Thank you. Meg Jose MD
[2018-02-24] MEDS ORDERED: PT OWN MED DRAWER 7, Y5N ONE ×2 (02:01→09:33)
[2018-02-24] MEDS: HEPARIN NA (PORCINE) 5,000 UNITS/ML 1ML VIAL SQ SCH ×3 (05:32→22:03)
[2018-02-24] MEDS: INSULIN SLIDING SCALE (NOVOLOG) 1 VIAL SQ SCH ×4 (06:17→22:03)
[2018-02-24 08:10] LABS: BASO % 0.2 % (0-2.0); EOS % 2.6 % (0-4.5); HEMATOCRIT 34.7 % (32.4-45.2); HEMOGLOBIN 11.7 GM/dL (10.7-15.3); LYMPH % 9.7 % (8-40); MCH 30.6 pg (25.7-33.7); MCHC 33.7 g/dl (32.0-36.0); MEAN CELL VOLUME 90.7 fl (80-96); MEAN PLT VOLUME 7.9 fl (7.5-11.1); MONO % 6.7 % (3.8-10.2); NEUT % 80.8 % (42.8-82.8); PLATELET COUNT 308 K/MM3 (134-434); RBC 3.82 M/mm3 (3.60-5.2); RDW 13.4 % (11.6-15.6)
[2018-02-24 08:17] LABS: ANION GAP 8 (8-16); BLOOD UREA NITROGEN 17 mg/dL (7-18); CALCIUM 7.8 mg/dL (8.5-10.1); CHLORIDE 97 mmol/L (98-107); CO2 28 mmol/L (21-32); CREATININE 0.9 mg/dL (0.55-1.02); GLUCOSE,RANDOM 142 mg/dL (74-106); MAGNESIUM 1.6 mg/dL (1.8-2.4); PHOSPHOROUS 2.7 mg/dL (2.5-4.9); POTASSIUM 4.2 mmol/L (3.5-5.1); SODIUM 133 mmol/L (136-145)
[2018-02-24] MEDS: INSULIN (LEVEMIR) 100 UNITS/ML UNITS SQ SCH ×2 (09:38→22:04)
[2018-02-24] MEDS: ERTAPENEM SODIUM 1 GM in SODIUM CHLORIDE 100 ML IVPB SCH (09:38)
[2018-02-24] MEDS ORDERED: MAGNESIUM SULF 50% (8.12 MEQ/2 ML-1 GM VIAL) IVPB ONE (10:30)
[2018-02-24 11:00] LABS: PLATELET ESTIMATE NORMAL
[2018-02-24] MEDS: POTASSIUM CHLORIDE TABS 20 MEQ TABLET.ER (FP) PO SCH (12:22)
--- NOTE | 2018-02-24 12:44 | PN ---
Progress Note, Physician Chief Complaint: The patient seen in her room. Reports feeling better. Lee catheter in place. Excellent urine output. Afebrile. Family with her History of Present Illness: This is a 77 y/o F with PMH DM, HTN, HLD, who presented to the ED c/o dysuria, fever, and nausea. Reportedly she had dysuria for the past three months. While the pt was in [place], she was seen by various physicians who were "unable to find out what was wrong" with her. She was started on IV Abx with significant improvement of symptoms. Maintains good urine output. Lee catheter draining copious amounts of urine - Current Medication List Current Medications: Active Medications Heparin Sodium (Porcine) (Heparin -) 5,000 unit SQ TID [facility] Last Admin: 02/24/18 05:32 Dose: 5,000 unit Ertapenem 1 gm/ Sodium (Chloride) 100 mls @ 200 mls/hr IVPB DAILY [facility]; Protocol Last Admin: 02/24/18 09:38 Dose: 200 mls/hr Insulin Aspart (Novolog Vial Sliding Scale -) 1 vial SQ ACHS [facility]; Protocol Last Admin: 02/24/18 12:16 Dose: 4 units Insulin Detemir (Levemir Vial) 10 units SQ HS [facility] Last Admin: 02/23/18 22:07 Dose: 10 units Insulin Detemir (Levemir Vial) 10 units SQ DAILY [facility] Last Admin: 02/24/18 09:38 Dose: 10 units Potassium Chloride (K-Dur -) 20 meq PO BID [facility] Last Admin: 02/24/18 12:22 Dose: Not Given - Objective Vital Signs: Vital Signs Temperature 98.9 F 02/24/18 06:00 Pulse Rate 78 02/24/18 06:00 Respiratory Rate 18 02/24/18 06:00 Blood Pressure 118/69 02/24/18 06:00 O2 Sat by Pulse Oximetry (%) 95 02/23/18 21:00 Constitutional: Yes: No Distress Eyes: Yes: Conjunctiva Clear HENT: Yes: Normocephalic Neck: Yes: Trachea Midline Respiratory: Yes: CTA Bilaterally, Diminished Gastrointestinal: Yes: Normal Bowel Sounds, Soft Genitourinary: Yes: Lee Present. No: Bladder Distention, CVA Tenderness - Left, CVA Tenderness - Right Extremities: No: Calf Tenderness Labs: CBC, BMP 02/24/18 07:30 02/24/18 07:30 Problem List - Problems (1) EVA (acute kidney injury) Code(s): N17.9 - ACUTE KIDNEY FAILURE, UNSPECIFIED (2) Diabetes mellitus Code(s): E11.9 - TYPE 2 DIABETES MELLITUS WITHOUT COMPLICATIONS (3) Abdominal pain Code(s): R10.9 - UNSPECIFIED ABDOMINAL PAIN Qualifiers: Abdominal location: left lower quadrant Qualified Code(s): R10.32 - Left lower quadrant pain (4) Hyperlipidemia Code(s): E78.5 - HYPERLIPIDEMIA, UNSPECIFIED (5) Hypertension Code(s): I10 - ESSENTIAL (PRIMARY) HYPERTENSION (6) Neurogenic bladder Code(s): N31.9 - NEUROMUSCULAR DYSFUNCTION OF BLADDER, UNSPECIFIED Assessment/Plan 77 y/o F with PMH DM, HTN, HLD, who presented with abdominal pain and dysuria. The patient started on IV fluids and IV antibiotics for possible urosepsis. The patient's clinical status better. The patient has had Acute Urinary Retention from Neurogenic bladder.Renal functions at or close to her baseline. Acute kidney Injury... Possibly related to the Septic process, Nueurogenic bladder and the Renal hemodynamic changes. Hypokalemia: improved Hyponatremia...Stable. Chronic Progressive Leukocytosis. ? etiology. ? leukemoid reaction Suggest: KCl supplements PRN. IV antibiotics as ordered. Will monitor the renal functions with you. Thank you. Meg Jose MD
--- NOTE | 2018-02-24 13:44 | PN ---
Progress Note (short form) - Note Progress Note: no complaints lowgrade fever Vital Signs Period Temp Pulse Resp BP Sys/[place] Pulse Ox Last 24 Hr 98 F-99.8 F 78-92 18-18 100-129/62-73 95 cor- rrr lungs clear abd soft,nt ext no edema +reyes CBC, BMP 02/24/18 07:30 02/24/18 07:30 Microbiology 02/23/18 11:40 Blood - Peripheral Venous Blood Culture - Preliminary NO GROWTH OBTAINED AFTER 24 HOURS, INCUBATION TO CONTINUE FOR 4 DAYS. 02/23/18 11:30 Blood - Peripheral Venous Blood Culture - Preliminary NO GROWTH OBTAINED AFTER 24 HOURS, INCUBATION TO CONTINUE FOR 4 DAYS. 02/19/18 22:18 Urine - Urine Clean Catch Urine Culture - Final Enterobacter Cloacae Escherichia Coli Esbl Director Of Medical Services 02/20/18 00:58 Blood - Peripheral Venous Blood Culture - Final Enterobacter Cloacae Lactose Fermenting Neg Bacilli#2 02/20/18 00:58 Blood - Peripheral Venous Blood Culture - Final Escherichia Coli Esbl Director Of Medical Services a/p polymicrobial gram negative bacteremia secondary to UTI--ecoli esbl and enterobacter- switch to ertapenem-day #3 today urinary retention neurogenic bladder repeat blood cultures sent and negative to date persistent leukocytosis- will ret renal sonogram to check if hydronephrosis has resolved esr/crp if not already obtained
--- NOTE | 2018-02-24 18:52 | PN ---
Physical Exam: SUBJECTIVE: Patient seen and examined at bedside. Overnight, pt with tmax 99.8F. Today, states she feels better however with continued weakness. Reyes draining. Denies JAUREGUI, fever, chills, chest pain, abdominal pain, or changes in urinary or bowel function. OBJECTIVE: Vital Signs Period Temp Pulse Resp BP Sys/[place] Pulse Ox Last 24 Hr 97.8 F-99.8 F 71-83 18-18 109-129/57-73 95-96 GENERAL: The patient is resting in bed. awake, alert, and fully oriented, in no acute distress. HEAD: Normal with no signs of trauma. EYES: PERRL, extraocular movements intact, sclera anicteric, conjunctiva clear. ENT: Ears normal, nares patent, oropharynx clear without exudates, moist mucous membranes. NECK: Trachea midline, supple. LUNGS: Breath sounds equal, clear to auscultation bilaterally, no wheezes, no crackles, no accessory muscle use. +poor insp effort HEART: Regular rate and rhythm, S1, S2 without murmur, rub or gallop. ABDOMEN: Soft, nontender, nondistended, normoactive bowel sounds, no guarding EXTREMITIES: 2+ pt pulses, warm, well-perfused, no edema. NEUROLOGICAL: Cranial nerves II through XII grossly intact. Iranian speaking PSYCH: Normal mood, normal affect. SKIN: Warm, dry, normal turgor Laboratory Results 02/24/18 07:30 WBC 22.0 H Hgb 11.7 Hct 34.7 Plt Count 308 D 02/24/18 07:30 Magnesium 1.6 L Active Medications Generic Name Dose Route Start Last Admin Trade Name Vita PRN Reason Stop Dose Admin Heparin Sodium (Porcine) 5,000 unit 02/20/18 06:00 02/24/18 14:14 Heparin - SQ 5,000 unit TID DONG Administration Ertapenem 1 gm/ Sodium 100 mls @ 200 mls/hr 02/22/18 12:45 02/24/18 09:38 Chloride IVPB 200 mls/hr DAILY DONG Administration Protocol Insulin Aspart 1 vial 02/20/18 16:30 02/24/18 17:26 Novolog Vial Sliding Scale - SQ 2 units ACHS DONG Administration Protocol Insulin Detemir 10 units 02/23/18 22:00 02/23/18 22:07 Levemir Vial SQ 10 units HS DONG Administration Insulin Detemir 10 units 02/23/18 10:00 02/24/18 09:38 Levemir Vial SQ 10 units DAILY DONG Administration Microbiology 02/20/18 00:58 Blood - Peripheral Venous Blood Culture - Final Escherichia Coli Esbl Detailer Furniture 02/20/18 00:58 Blood - Peripheral Venous Blood Culture - Final Enterobacter Cloacae Lactose Fermenting Neg Bacilli#2 02/19/18 22:18 Urine - Urine Clean Catch Urine Culture - Final Enterobacter Cloacae Escherichia Coli Esbl Det[employer]er Furniture 02/23/18 11:40 Blood - Peripheral Venous Blood Culture - Preliminary NO GROWTH OBTAINED AFTER 24 HOURS, INCUBATION TO CONTINUE FOR 4 DAYS. 02/23/18 11:30 Blood - Peripheral Venous Blood Culture - Preliminary NO GROWTH OBTAINED AFTER 24 HOURS, INCUBATION TO CONTINUE FOR 4 DAYS. Imaging 02/19/18 CXR: cardiomegaly, possible mild congestion 02/20/18: 1. extensive urinary bladder wall thickening with perivesical fat stranding is compatible with cystitis. reyes in place. gas in urinary bladder likely from recent reyes catheter placement. 2. bilateral moderate hydroureteronephrosis with periureteral and perinephric fat stranding L>R. these findings are suspicious for ascending pyelonephritis/ureteritis. please correlate clinically. no obstructing urinary tract calculus. the etiology of obstructive uropathy is not definitely identified on this noncontrast CT however may be secondary to extensive urinary bladder wall thickening. 3. mild cardiomegaly. small pericardial effusion trace layering bilateral pleural effusions. 4. pleural-based opacity in the medial L lung base is most likely atelectasis and or scarring. superimposed pneumonia or underlying mass lesion cannot be entirely excluded. 02/20/18: Duplex LLE: no evidence DVT. 1.6x0.8x0.6cm hypoechoic lesion/collection in L popliteal fossa which may be a Plasencia's cyst. ASSESSMENT/PLAN: 77 y/o F with PMH DM, HTN, HLD, who presents to the ED c/o dysuria, fever, and nausea. Pt admitted for sepsis 2/2 UTI, r/o alternate abdominal pathology. #Sepsis 2/2 enterobacter, ESBL UTI -afebrile, however still with elevated white ct (22 from 21.9) -?reyes increasing suscept to infection, will d/c -continue ertapenem 1g IVPB qd (Today is Day 3) -repeat blood cx (-) -isolation precautions -ID: Dr. Samuels #EVA possible 2/2 poor PO intake, pre-renal -Cr has improved -Nephro: Dr. Jose #Chronic neurogenic bladder -will need d/c on reyes or self cath instruction -Urology: Dr. Layne #DM (A1c 11.8%). Poorly controlled -ISS ACHS -BGM #HTN-controlled -currently not on meds #HLD -F/u repeat lipid panel #LLE TTP, r/o DVT-resolved -Pt with increased sensitivity in LLE, new (+) varicose veins -Duplex (-) for DVT #F/E/N monitor off IVF continue to follow lytes sodium controlled, diabetic diet #PPX Hep 5000 U SQ TID #Dispo continued monitoring on med-surg watch fever curve, awaiting improvement white ct Visit type - Emergency Visit Emergency Visit: No - New Patient This patient is new to me today: No - Critical Care Critical Care patient: No
[2018-02-24 18:55] LABS: CHOLESTEROL 71 mg/dL (50-200); HDL CHOLESTEROL 16 mg/dL (40-60); TRIGLYCERIDES 166 mg/dL (35-160)
--- NOTE | 2018-02-24 19:01 | PN ---
Teaching Attending Note Name of Resident: Trudi Damon ATTENDING PHYSICIAN STATEMENT I saw and evaluated the patient. I reviewed the resident's note and discussed the case with the resident. I agree with the resident's findings and plan as documented. SUBJECTIVE: No fever or chills . no abd pain OBJECTIVE: NAD CV: RRR Lungs: CTAB Abd: soft, NT, ND , NL BS Ext: no edema ASSESSMENT AND PLAN: 77 y/o lady with h/o DM who presented with abd abd pain and dysuria and was found to have UTI with bacteremia and b/l [place] 1- Urosepsis, with bacteremia : no obvious obstruction on CT scan , but WBC cont to be elevated. - appreciate ID help, cont ertapenam , follow US - follow repeat blood cx and WBC 2-Urinary retention : due to UTI. voiding trial 3- Uncontrolled DM : A1c: 11.8. need insulin - cont levemir 10 BID - has no insurance but will try to get insulin as out pt until [place] - cont SSI 4- EVA: resolved. cont to monitor 5- LIpid panel reviewed. will repeat . dispo : HLOC
[2018-02-24] MEDS ORDERED: INSULIN (NOVOLOG) ASPART 100 UNITS/ML 10ML VIAL ONE (21:44)
[2018-02-25 08:56] LABS: ANION GAP 9 (8-16); BLOOD UREA NITROGEN 15 mg/dL (7-18); CALCIUM 7.9 mg/dL (8.5-10.1); CHLORIDE 97 mmol/L (98-107); CO2 28 mmol/L (21-32); CREATININE 0.8 mg/dL (0.55-1.02); GLUCOSE,RANDOM 105 mg/dL (74-106); MAGNESIUM 1.7 mg/dL (1.8-2.4); PHOSPHOROUS 3.6 mg/dL (2.5-4.9); POTASSIUM 3.8 mmol/L (3.5-5.1); SODIUM 134 mmol/L (136-145)
[2018-02-25 09:02] LABS: BASO % 0.6 % (0-2.0); EOS % 3.5 % (0-4.5); LYMPH % 13.6 % (8-40); MCH 30.5 pg (25.7-33.7); MCHC 33.4 g/dl (32.0-36.0); MEAN CELL VOLUME 91.3 fl (80-96); MEAN PLT VOLUME 7.5 fl (7.5-11.1); MONO % 6.6 % (3.8-10.2); NEUT % 75.7 % (42.8-82.8); PLATELET COUNT 340 K/MM3 (134-434); RBC 3.61 M/mm3 (3.60-5.2); RDW 13.6 % (11.6-15.6); WHITE BLOOD COUNT 16.7 K/mm3 (4.0-10.0)
[2018-02-25] MEDS ORDERED: PT OWN MED DRAWER 7, Y5N ONE (09:03)
[2018-02-25] MEDS: INSULIN SLIDING SCALE (NOVOLOG) 1 VIAL SQ SCH ×3 (11:25→21:08)
[2018-02-25] MEDS: INSULIN (LEVEMIR) 100 UNITS/ML UNITS SQ SCH ×2 (11:26→21:08)
[2018-02-25] MEDS: ERTAPENEM SODIUM 1 GM in SODIUM CHLORIDE 100 ML IVPB SCH (11:26)
--- NOTE | 2018-02-25 13:15 | PN ---
Progress Note, Physician Chief Complaint: The patient seen in her room. Family visiting. Feeling better. Maintains good urine output. History of Present Illness: This is a 77 y/o F with PMH DM, HTN, HLD, who presented to the ED c/o dysuria, fever, and nausea. Reportedly she had dysuria for the past three months. While the pt was in [place], she was seen by various physicians who were "unable to find out what was wrong" with her. She was started on IV Abx with significant improvement of symptoms Maintains good urine output. Lee catheter draining copious amounts of urine - Current Medication List Current Medications: Active Medications Heparin Sodium (Porcine) (Heparin -) 5,000 unit SQ TID [facility] Last Admin: 02/24/18 22:03 Dose: 5,000 unit Ertapenem 1 gm/ Sodium (Chloride) 100 mls @ 200 mls/hr IVPB DAILY [facility]; Protocol Last Admin: 02/25/18 11:26 Dose: 200 mls/hr Insulin Aspart (Novolog Vial Sliding Scale -) 1 vial SQ ACHS [facility]; Protocol Last Admin: 02/25/18 11:25 Dose: 10 units Insulin Detemir (Levemir Vial) 10 units SQ HS [facility] Last Admin: 02/24/18 22:04 Dose: 10 units Insulin Detemir (Levemir Vial) 10 units SQ DAILY [facility] Last Admin: 02/25/18 11:26 Dose: 10 units - Objective Vital Signs: Vital Signs Temperature 99.0 F 02/25/18 08:59 Pulse Rate 77 02/25/18 08:59 Respiratory Rate 18 02/25/18 08:59 Blood Pressure 105/63 02/25/18 08:59 O2 Sat by Pulse Oximetry (%) 95 02/24/18 21:00 Constitutional: Yes: No Distress, Calm HENT: Yes: Normocephalic Neck: Yes: Trachea Midline Cardiovascular: Yes: S1, S2 Respiratory: Yes: CTA Bilaterally, Diminished Gastrointestinal: Yes: Normal Bowel Sounds, Soft Genitourinary: Yes: Lee Present. No: CVA Tenderness - Left, CVA Tenderness - Right Musculoskeletal: No: Joint Stiffness Edema: No Neurological: Yes: Alert Labs: CBC, BMP 02/25/18 06:20 02/25/18 06:00 Problem List - Problems (1) EVA (acute kidney injury) Code(s): N17.9 - ACUTE KIDNEY FAILURE, UNSPECIFIED (2) Diabetes mellitus Code(s): E11.9 - TYPE 2 DIABETES MELLITUS WITHOUT COMPLICATIONS (3) Abdominal pain Code(s): R10.9 - UNSPECIFIED ABDOMINAL PAIN Qualifiers: Abdominal location: left lower quadrant Qualified Code(s): R10.32 - Left lower quadrant pain (4) Hyperlipidemia Code(s): E78.5 - HYPERLIPIDEMIA, UNSPECIFIED (5) Hypertension Code(s): I10 - ESSENTIAL (PRIMARY) HYPERTENSION (6) Neurogenic bladder Code(s): N31.9 - NEUROMUSCULAR DYSFUNCTION OF BLADDER, UNSPECIFIED Assessment/Plan 77 y/o F with PMH DM, HTN, HLD, who presented with abdominal pain and dysuria. The patient started on IV fluids and IV antibiotics for UTI. The patient's clinical status better. The patient has had Acute Urinary Retention from Neurogenic bladder.Renal functions at or close to her baseline. Acute kidney Injury... Possibly related to the Septic process, Nueurogenic bladder and the Renal hemodynamic changes. Hypokalemia: improved Hyponatremia...Stable. Chronic Progressive Leukocytosis. ? etiology. Starting to improve. Hypocalcemia...but when corrected for the hypoalbuminemia, in acceptable range. Suggest: KCl supplements PRN. IV antibiotics as ordered. Will monitor the renal functions with you. Thank you. Meg Jose MD
--- NOTE | 2018-02-25 14:03 | PN ---
Teaching Attending Note Name of Resident: Trudi Damon ATTENDING PHYSICIAN STATEMENT I saw and evaluated the patient. I reviewed the resident's note and discussed the case with the resident. I agree with the resident's findings and plan as documented. SUBJECTIVE: no pin or SOB. feels better today . last night failed voiding trial OBJECTIVE: NAD CV: RRR Lungs: CTAB Abd: soft, NT, ND , NL BS Ext: no edema ASSESSMENT AND PLAN: 77 y/o lady with h/o DM who presented with abd abd pain and dysuria and was found to have UTI with bacteremia and b/l [place] 1- Urosepsis, with bacteremia : WBC improved, and no obstruction on US. - cont ertapenam - follow repeat cx 2-Urinary retention : failed voiding trial. reyes was olaced back 3- Uncontrolled DM: A1c: 11.8. - cont levemir 10 BID - has no insurance but will try to get insulin as out pt until she [place] to [place]. - cont SSI - will d/w family about that 4- EVA: resolved. cont to monitor 5- Lipid panel reviewed. Dispo : HLOC
[2018-02-25] MEDS: HEPARIN NA (PORCINE) 5,000 UNITS/ML 1ML VIAL SQ SCH ×2 (14:28→21:07)
--- NOTE | 2018-02-25 18:58 | PN ---
Physical Exam: SUBJECTIVE: Patient seen and examined at bedside. Overnight, pt retaining; reyes reinserted with 700cc output. Today, pt still c/o diffuse weakness. Otherwise, without physical complaint. D/w patient's at length- hoping to learn how to inject insulin to help his . Without dysuria or abdominal pain today. OBJECTIVE: Vital Signs Period Temp Pulse Resp BP Sys/[place] Pulse Ox Last 24 Hr 97.8 F-99.0 F 69-77 16-18 105-117/57-68 95-95 GENERAL: The patient is resting comfortably in bed. at bedside. awake, alert, and fully oriented, in no acute distress. HEAD: Normal with no signs of trauma. EYES: PERRL, extraocular movements intact, sclera anicteric, conjunctiva clear. ENT: Ears normal, nares patent, oropharynx clear without exudates, moist mucous membranes. NECK: Trachea midline, supple. LUNGS: Breath sounds equal, clear to auscultation bilaterally, no wheezes, no crackles, no accessory muscle use. +poor effort HEART: Regular rate and rhythm, S1, S2 without murmur, rub or gallop. ABDOMEN: Soft, nontender, nondistended, normoactive bowel sounds, no guarding EXTREMITIES: 2+ pt pulses, warm, well-perfused, no edema. NEUROLOGICAL: interactive, tired. able to move upper and lower extremities. sensation intact. would not perform whole exam. PSYCH: Normal mood, normal affect. SKIN: Warm, dry, normal turgor, no rashes or lesions noted Laboratory Tests 02/25/18 02/25/18 06:00 06:20 WBC 16.7 H Sodium 134 L Potassium 3.8 Chloride 97 L Carbon Dioxide 28 BUN 15 Creatinine 0.8 Active Medications Generic Name Dose Route Start Last Admin Trade Name Freq PRN Reason Stop Dose Admin Heparin Sodium (Porcine) 5,000 unit 02/20/18 06:00 02/25/18 14:28 Heparin - SQ 5,000 unit TID DONG Administration Ertapenem 1 gm/ Sodium 100 mls @ 200 mls/hr 02/22/18 12:45 02/25/18 11:26 Chloride IVPB 200 mls/hr DAILY DONG Administration Protocol Insulin Aspart 1 vial 02/20/18 16:30 02/25/18 17:33 Novolog Vial Sliding Scale - SQ 8 units ACHS DONG Administration Protocol Insulin Detemir 10 units 02/23/18 22:00 02/24/18 22:04 Levemir Vial SQ 10 units HS DONG Administration Insulin Detemir 10 units 02/23/18 10:00 02/25/18 11:26 Levemir Vial SQ 10 units DAILY DONG Administration Microbiology 02/20/18 00:58 Blood - Peripheral Venous Blood Culture - Final Escherichia Coli Esbl Retread Supervisor 02/20/18 00:58 Blood - Peripheral Venous Blood Culture - Final Enterobacter Cloacae Lactose Fermenting Neg Bacilli#2 02/19/18 22:18 Urine - Urine Clean Catch Urine Culture - Final Enterobacter Cloacae Escherichia Coli Esbl Retread Supervisor 02/23/18 11:40 Blood - Peripheral Venous Blood Culture - Preliminary NO GROWTH OBTAINED AFTER 48 HOURS, INCUBATION TO CONTINUE FOR 3 DAYS. 02/23/18 11:30 Blood - Peripheral Venous Blood Culture - Preliminary NO GROWTH OBTAINED AFTER 48 HOURS, INCUBATION TO CONTINUE FOR 3 DAYS. Imaging 02/19/18 CXR: cardiomegaly, possible mild congestion 02/20/18: 1. extensive urinary bladder wall thickening with perivesical fat stranding is compatible with cystitis. reyes in place. gas in urinary bladder likely from recent reyes catheter placement. 2. bilateral moderate hydroureteronephrosis with periureteral and perinephric fat stranding L>R. these findings are suspicious for ascending pyelonephritis/ureteritis. please correlate clinically. no obstructing urinary tract calculus. the etiology of obstructive uropathy is not definitely identified on this noncontrast CT however may be secondary to extensive urinary bladder wall thickening. 3. mild cardiomegaly. small pericardial effusion trace layering bilateral pleural effusions. 4. pleural-based opacity in the medial L lung base is most likely atelectasis and or scarring. superimposed pneumonia or underlying mass lesion cannot be entirely excluded. 02/20/18: Duplex LLE: no evidence DVT. 1.6x0.8x0.6cm hypoechoic lesion/collection in L popliteal fossa which may be a Plasencia's cyst. 02/25/18: Renal sono: both kidneys unremarkable. ASSESSMENT/PLAN: 77 y/o F with PMH DM, HTN, HLD, who presents to the ED c/o dysuria, fever, and nausea. Pt admitted for sepsis 2/2 UTI, r/o alternate abdominal pathology. #Sepsis 2/2 enterobacter, ESBL UTI -improving -white ct has improved from 22 to 16.7 -possible abx working, or trial off reyes beneficial. however cont'd on reyes now -continue ertapenem 1g IVPB qd (Today is Day 4) -repeat blood cx (-) 48hrs -isolation precautions -ID: Dr. Samuels #EVA possible 2/2 poor PO intake, pre-renal -Cr has improved -renal sono- WNL -Nephro: Dr. Jose #Chronic neurogenic bladder -will need d/c on reyes or self cath instruction -Urology: Dr. Layne #DM (A1c 11.8%). Poorly controlled -d/w ; will learn how to inject insulin to help. very motivated -messages left for son, awaiting call back -continue levemir 10mg SQ BID -ISS ACHS -BGM #HTN-controlled -currently not on meds #HLD -repeat lipid panel, still with low values #LLE TTP, r/o DVT-resolved -Pt with increased sensitivity in LLE, new (+) varicose veins -Duplex (-) for DVT #F/E/N monitor off IVF continue to follow lytes sodium controlled, diabetic diet #PPX Hep 5000 U SQ TID #Dispo continued monitoring on med-surg watch fever curve, white ct improving Visit type - Emergency Visit Emergency Visit: No - New Patient This patient is new to me today: No - Critical Care Critical Care patient: No
[2018-02-26] MEDS ORDERED: INSULIN (NOVOLOG) ASPART 100 UNITS/ML 10ML VIAL ONE (05:54)
[2018-02-26] MEDS: HEPARIN NA (PORCINE) 5,000 UNITS/ML 1ML VIAL SQ SCH ×3 (05:58→21:45)
[2018-02-26] MEDS: INSULIN SLIDING SCALE (NOVOLOG) 1 VIAL SQ SCH ×4 (05:59→21:45)
[2018-02-26 09:05] LABS: BASO % 0.6 % (0-2.0); EOS % 2.4 % (0-4.5); HEMATOCRIT 35.8 % (32.4-45.2); HEMOGLOBIN 11.9 GM/dL (10.7-15.3); LYMPH % 15.4 % (8-40); MCH 30.6 pg (25.7-33.7); MCHC 33.2 g/dl (32.0-36.0); MEAN PLT VOLUME 7.5 fl (7.5-11.1); MONO % 5.8 % (3.8-10.2); NEUT % 75.8 % (42.8-82.8); PLATELET COUNT 450 K/MM3 (134-434); RBC 3.89 M/mm3 (3.60-5.2); RDW 13.4 % (11.6-15.6); WHITE BLOOD COUNT 14.1 K/mm3 (4.0-10.0)
--- NOTE | 2018-02-26 09:50 | PN ---
Progress Note (short form) - Note Progress Note: no complaints, failed voiding trial reyes replaced Vital Signs Period Temp Pulse Resp BP Sys/[place] Pulse Ox Last 24 Hr 97.8 F-99.1 F 67-84 16-18 112-131/57-74 95 cor-rrr lungs clear abd soft,nt ext no edema +reyes CBC, BMP 02/26/18 08:38 02/25/18 06:00 Microbiology 02/23/18 11:40 Blood - Peripheral Venous Blood Culture - Preliminary NO GROWTH OBTAINED AFTER 48 HOURS, INCUBATION TO CONTINUE FOR 3 DAYS. 02/23/18 11:30 Blood - Peripheral Venous Blood Culture - Preliminary NO GROWTH OBTAINED AFTER 48 HOURS, INCUBATION TO CONTINUE FOR 3 DAYS. 02/19/18 22:18 Urine - Urine Clean Catch Urine Culture - Final Enterobacter Cloacae Escherichia Coli Esbl Home Health Attendant 02/20/18 00:58 Blood - Peripheral Venous Blood Culture - Final Enterobacter Cloacae Lactose Fermenting Neg Bacilli#2 02/20/18 00:58 Blood - Peripheral Venous Blood Culture - Final Escherichia Coli Esbl Home Health Attendant a/p polymicrobial gram negative bacteremia secondary to UTI--ecoli esbl and enterobacter- switch to ertapenem-day #5 today urinary retention neurogenic bladder repeat blood cultures sent and negative to date wbc trending down plan to continue iv ertapenem through the weekend please call back if needed
--- NOTE | 2018-02-26 10:12 | PN ---
Physical Exam: SUBJECTIVE: Patient seen and examined at bedside. No acute events overnight. Today, pt states that she feels "a little bit of pain," however unable to describe or quantify. When asked directly, denies JAUREGUI, fever, chills, SOB, dysuria, or changes in bowel function. Sitting on side of bed, appears in good spirits and well kept. OBJECTIVE: Vital Signs Period Temp Pulse Resp BP Sys/[place] Pulse Ox Last 24 Hr 97.8 F-99.1 F 67-84 16-18 112-131/57-74 95 GENERAL: The patient appears well. Sitting up in bed, well kept. awake, alert, and fully oriented, in no acute distress. HEAD: Normal with no signs of trauma. EYES: PERRL, extraocular movements intact, sclera anicteric, conjunctiva clear. ENT: Ears normal, nares patent, oropharynx clear without exudates, moist mucous membranes. NECK: Trachea midline, supple. LUNGS: Breath sounds equal, clear to auscultation bilaterally, no wheezes, no crackles, no accessory muscle use. HEART: Regular rate and rhythm, S1, S2 without murmur, rub or gallop. ABDOMEN: Soft, nontender, nondistended, normoactive bowel sounds, no guarding, no rebound. : +reyes in place, draining EXTREMITIES: 2+ pt pulses, warm, well-perfused, no edema. NEUROLOGICAL: interactive, moving upper and lower extremities. Georgian speaking PSYCH: Normal mood, normal affect. SKIN: Warm, dry, normal turgor Laboratory Results - last 24 hr 02/25/18 02/25/18 06:00 08:00 Basophils % ESR 96 H Sodium 134 L Potassium 3.8 Chloride 97 L Carbon Dioxide 28 Anion Gap 9 BUN 15 Creatinine 0.8 POC Glucometer Random Glucose 105 Calcium 7.9 L Phosphorus 3.6 Magnesium 1.7 L C-Reactive Protein 10.1 H 02/26/18 08:38 WBC 14.1 H RBC 3.89 Hgb 11.9 Hct 35.8 MCV 92.0 MCH 30.6 MCHC 33.2 RDW 13.4 Plt Count 450 H D MPV 7.5 Absolute Neuts (auto) 10.7 Neutrophils % 75.8 Lymphocytes % 15.4 Monocytes % 5.8 Eosinophils % 2.4 Basophils % 0.6 Nucleated RBC % 0 ESR Carbon Dioxide Calcium Phosphorus Magnesium C-Reactive Protein Active Medications Generic Name Dose Route Start Last Admin Trade Name Vita PRN Reason Stop Dose Admin Heparin Sodium (Porcine) 5,000 unit 02/20/18 06:00 02/26/18 05:58 Heparin - SQ 5,000 unit TID DONG Administration Ertapenem 1 gm/ Sodium 100 mls @ 200 mls/hr 02/22/18 12:45 02/25/18 11:26 Chloride IVPB 200 mls/hr DAILY DONG Administration Protocol Insulin Aspart 1 vial 02/20/18 16:30 02/26/18 05:59 Novolog Vial Sliding Scale - SQ 4 units ACHS DONG Administration Protocol Insulin Detemir 10 units 02/23/18 22:00 02/25/18 21:08 Levemir Vial SQ 10 units HS DONG Administration Insulin Detemir 10 units 02/23/18 10:00 02/25/18 11:26 Levemir Vial SQ 10 units DAILY DONG Administration Imaging 02/19/18 CXR: cardiomegaly, possible mild congestion 02/20/18: 1. extensive urinary bladder wall thickening with perivesical fat stranding is compatible with cystitis. reyes in place. gas in urinary bladder likely from recent reyes catheter placement. 2. bilateral moderate hydroureteronephrosis with periureteral and perinephric fat stranding L>R. these findings are suspicious for ascending pyelonephritis/ureteritis. please correlate clinically. no obstructing urinary tract calculus. the etiology of obstructive uropathy is not definitely identified on this noncontrast CT however may be secondary to extensive urinary bladder wall thickening. 3. mild cardiomegaly. small pericardial effusion trace layering bilateral pleural effusions. 4. pleural-based opacity in the medial L lung base is most likely atelectasis and or scarring. superimposed pneumonia or underlying mass lesion cannot be entirely excluded. 02/20/18: Duplex LLE: no evidence DVT. 1.6x0.8x0.6cm hypoechoic lesion/collection in L popliteal fossa which may be a Plasencia's cyst. 02/25/18: Renal sono: both kidneys unremarkable. Microbiology 02/20/18 00:58 Blood - Peripheral Venous Blood Culture - Final Escherichia Coli Esbl Clinical Technologist 02/20/18 00:58 Blood - Peripheral Venous Blood Culture - Final Enterobacter Cloacae Lactose Fermenting Neg Bacilli#2 02/19/18 22:18 Urine - Urine Clean Catch Urine Culture - Final Enterobacter Cloacae Escherichia Coli Esbl Clinical Technologist 02/23/18 11:40 Blood - Peripheral Venous Blood Culture - Preliminary NO GROWTH OBTAINED AFTER 72 HOURS, INCUBATION TO CONTINUE FOR 2 DAYS. 02/23/18 11:30 Blood - Peripheral Venous Blood Culture - Preliminary NO GROWTH OBTAINED AFTER 72 HOURS, INCUBATION TO CONTINUE FOR 2 DAYS. ASSESSMENT/PLAN: 77 y/o F with PMH DM, HTN, HLD, who presents to the ED c/o dysuria, fever, and nausea. Pt admitted for sepsis 2/2 UTI, r/o alternate abdominal pathology. #Sepsis 2/2 enterobacter, ESBL UTI -improving -white ct gradually improving, on abx. 16.7 to 14.1 -continue ertapenem 1g IVPB qd (Today is Day 5) -repeat blood cx (-) have been neg for 72hrs -isolation precautions -ID: Dr. Samuels #Chronic neurogenic bladder -will need d/c on reyes or self cath instruction -Urology: Dr. Layne #DM (A1c 11.8%). Poorly controlled -d/w ; will learn how to inject insulin to help. very motivated -d/w nurse; will teach pt how to use insulin. have started to teach -continue levemir 10mg SQ BID -ISS ACHS -BGM #HTN-controlled -currently not on meds #HLD -repeat lipid panel, still with low values #LLE TTP, r/o DVT-resolved -Pt with increased sensitivity in LLE, new (+) varicose veins -Duplex (-) for DVT #EVA possible 2/2 poor PO intake, [id number] -renal sono- WNL -Nephro: Dr. Jose #F/E/N monitor off IVF continue to follow lytes sodium controlled, diabetic diet #PPX Hep 5000 U SQ TID #Dispo continued monitoring on med-surg white ct continuing to improve gradually Visit type - Emergency Visit Emergency Visit: No - New Patient This patient is new to me today: No - Critical Care Critical Care patient: No
[2018-02-26] MEDS: ERTAPENEM SODIUM 1 GM in SODIUM CHLORIDE 100 ML IVPB SCH (11:11)
[2018-02-26] MEDS: INSULIN (LEVEMIR) 100 UNITS/ML UNITS SQ SCH ×2 (11:27→21:46)
--- NOTE | 2018-02-26 12:53 | PN ---
Progress Note, Physician Chief Complaint: The patient seen in her room. Reyes catheter back in. Clear urine noted. History of Present Illness: This is a 77 y/o F with PMH DM, HTN, HLD, who presented to the ED c/o dysuria, fever, and nausea. Reportedly she had dysuria for the past three months. While the pt was in [place], she was seen by various physicians who were "unable to find out what was wrong" with her. She was started on IV Abx with significant improvement of symptoms Has neurogenic bladder and urinary retention. Maintains good urine output. Reyes catheter draining copious amounts of urine - Current Medication List Current Medications: Active Medications Heparin Sodium (Porcine) (Heparin -) 5,000 unit SQ TID [facility] Last Admin: 02/26/18 05:58 Dose: 5,000 unit Ertapenem 1 gm/ Sodium (Chloride) 100 mls @ 200 mls/hr IVPB DAILY [facility]; Protocol Last Admin: 02/26/18 11:11 Dose: 200 mls/hr Insulin Aspart (Novolog Vial Sliding Scale -) 1 vial SQ ACHS [facility]; Protocol Last Admin: 02/26/18 11:29 Dose: 10 units Insulin Detemir (Levemir Vial) 10 units SQ HS DONG Last Admin: 02/25/18 21:08 Dose: 10 units Insulin Detemir (Levemir Vial) 10 units SQ DAILY [facility] Last Admin: 02/26/18 11:27 Dose: 10 units - Objective Vital Signs: Vital Signs Temperature 98.6 F 02/26/18 10:11 Pulse Rate 73 02/26/18 10:11 Respiratory Rate 20 02/26/18 10:11 Blood Pressure 106/59 02/26/18 10:11 O2 Sat by Pulse Oximetry (%) 95 02/26/18 09:00 Constitutional: Yes: No Distress, Calm HENT: Yes: Normocephalic Neck: No: Tenderness Respiratory: Yes: CTA Bilaterally Gastrointestinal: Yes: Normal Bowel Sounds, Soft Edema: No Neurological: Yes: Alert Psychiatric: Yes: Alert Labs: CBC, BMP 02/26/18 08:38 02/25/18 06:00 Problem List - Problems (1) EVA (acute kidney injury) Code(s): N17.9 - ACUTE KIDNEY FAILURE, UNSPECIFIED (2) Diabetes mellitus Code(s): E11.9 - TYPE 2 DIABETES MELLITUS WITHOUT COMPLICATIONS (3) Abdominal pain Code(s): R10.9 - UNSPECIFIED ABDOMINAL PAIN Qualifiers: Abdominal location: left lower quadrant Qualified Code(s): R10.32 - Left lower quadrant pain (4) Hyperlipidemia Code(s): E78.5 - HYPERLIPIDEMIA, UNSPECIFIED (5) Hypertension Code(s): I10 - ESSENTIAL (PRIMARY) HYPERTENSION (6) Neurogenic bladder Code(s): N31.9 - NEUROMUSCULAR DYSFUNCTION OF BLADDER, UNSPECIFIED Assessment/Plan 77 y/o F with PMH DM, HTN, HLD, who presented with abdominal pain and dysuria. The patient started on IV fluids and IV antibiotics for UTI. The patient's clinical status better. The patient has had Acute Urinary Retention from Neurogenic bladder.Renal functions at or close to her baseline. Acute kidney Injury... Possibly related to the Septic process, Nueurogenic bladder and the Renal hemodynamic changes. Hypokalemia: improved Hyponatremia...Stable. Chronic Leukocytosis..... Improving Hypocalcemia...but when corrected for the hypoalbuminemia, in acceptable range. Neurogenic bladder: may need indwelling reyes when discharged. Suggest: KCl supplements PRN. IV antibiotics as ordered. Thank you. Meg Jose MD
--- NOTE | 2018-02-26 13:46 | PN ---
Physical Exam: SUBJECTIVE: Patient seen and examined OBJECTIVE: Vital Signs Period Temp Pulse Resp BP Sys/[place] Pulse Ox Last 24 Hr 97.8 F-99.1 F 67-84 16-20 106-131/57-74 95-95 GENERAL: The patient is awake, alert, and fully oriented, in no acute distress. HEAD: Normal with no signs of trauma. EYES: PERRL, extraocular movements intact, sclera anicteric, conjunctiva clear. No ptosis. ENT: Ears normal, nares patent, oropharynx clear without exudates, moist mucous membranes. NECK: Trachea midline, full range of motion, supple. LUNGS: Breath sounds equal, clear to auscultation bilaterally, no wheezes, no crackles, no accessory muscle use. HEART: Regular rate and rhythm, S1, S2 without murmur, rub or gallop. ABDOMEN: Soft, nontender, nondistended, normoactive bowel sounds, no guarding, no rebound, no hepatosplenomegaly, no masses. EXTREMITIES: 2+ pulses, warm, well-perfused, no edema. NEUROLOGICAL: Cranial nerves II through XII grossly intact. Normal speech, gait not observed. PSYCH: Normal mood, normal affect. SKIN: Warm, dry, normal turgor, no rashes or lesions noted Laboratory Results - last 24 hr 02/25/18 02/25/18 02/26/18 17:32 21:06 05:43 WBC RBC Hgb Hct MCV MCH MCHC RDW Plt Count MPV Absolute Neuts (auto) Neutrophils % Lymphocytes % Monocytes % Eosinophils % Basophils % Nucleated RBC % POC Glucometer 303 247 216 02/26/18 02/26/18 08:38 11:21 WBC 14.1 H RBC 3.89 Hgb 11.9 Hct 35.8 MCV 92.0 MCH 30.6 MCHC 33.2 RDW 13.4 Plt Count 450 H D MPV 7.5 Absolute Neuts (auto) 10.7 Neutrophils % 75.8 Lymphocytes % 15.4 Monocytes % 5.8 Eosinophils % 2.4 Basophils % 0.6 Nucleated RBC % 0 POC Glucometer 361 Active Medications Generic Name Dose Route Start Last Admin Trade Name Freq PRN Reason Stop Dose Admin Heparin Sodium (Porcine) 5,000 unit 02/20/18 06:00 02/26/18 05:58 Heparin - SQ 5,000 unit TID DONG Administration Ertapenem 1 gm/ Sodium 100 mls @ 200 mls/hr 02/22/18 12:45 02/26/18 11:11 Chloride IVPB 200 mls/hr DAILY DONG Administration Protocol Insulin Aspart 1 vial 02/20/18 16:30 02/26/18 11:29 Novolog Vial Sliding Scale - SQ 10 units ACHS DONG Administration Protocol Insulin Detemir 10 units 02/23/18 22:00 02/25/18 21:08 Levemir Vial SQ 10 units HS DONG Administration Insulin Detemir 10 units 02/23/18 10:00 02/26/18 11:27 Levemir Vial SQ 10 units DAILY DONG Administration ASSESSMENT/PLAN:
--- NOTE | 2018-02-26 18:00 | PN ---
Teaching Attending Note Name of Resident: Trudi Damon ATTENDING PHYSICIAN STATEMENT I saw and evaluated the patient. I reviewed the resident's note and discussed the case with the resident. I agree with the resident's findings and plan as documented. SUBJECTIVE: No fever or chills . No abd pain. no OSB OBJECTIVE: NAD CV: RRR Lungs: CTAB Abd: soft, NT, ND , NL BS Ext: no edema ASSESSMENT AND PLAN: 77 y/o lady with h/o DM who presented with abd abd pain and dysuria and was found to have UTI with bacteremia and b/l [place] 1- Urosepsis, with bacteremia : WBC cont to improve. - cont ertapenam - follow repeat cx 2-Urinary retention : failed voiding trial. reyes was olaced back 3- Uncontrolled DM: A1c: 11.8. - cont levemir 10 BID - cont SSI 4- EVA: resolved. cont to monitor Dispo : OC
[2018-02-27] MEDS: HEPARIN NA (PORCINE) 5,000 UNITS/ML 1ML VIAL SQ SCH ×4 (06:12→21:52)
[2018-02-27] MEDS: INSULIN SLIDING SCALE (NOVOLOG) 1 VIAL SQ SCH ×5 (06:13→21:53)
[2018-02-27 07:44] LABS: ALBUMIN 2.1 g/dl (3.4-5.0); ALK PHOS 245 U/L (45-117); ANION GAP 5 (8-16); BILIRUBIN,TOTAL 0.4 mg/dL (0.2-1.0); BLOOD UREA NITROGEN 18 mg/dL (7-18); CALCIUM 8.3 mg/dL (8.5-10.1); CHLORIDE 97 mmol/L (98-107); CO2 31 mmol/L (21-32); CREATININE 0.9 mg/dL (0.55-1.02); GLUCOSE,RANDOM 151 mg/dL (74-106); MAGNESIUM 1.6 mg/dL (1.8-2.4); PHOSPHOROUS 3.4 mg/dL (2.5-4.9); POTASSIUM 4.6 mmol/L (3.5-5.1); SGOT/AST 22 U/L (15-37); SGPT/ALT 29 U/L (12-78); SODIUM 133 mmol/L (136-145); TOT PROT 6.8 g/dl (6.4-8.2)
[2018-02-27 08:31] LABS: BASO % 0.5 % (0-2.0); EOS % 2.5 % (0-4.5); HEMATOCRIT 32.7 % (32.4-45.2); LYMPH % 16.2 % (8-40); MCH 30.9 pg (25.7-33.7); MCHC 33.6 g/dl (32.0-36.0); MEAN CELL VOLUME 91.9 fl (80-96); MEAN PLT VOLUME 7.5 fl (7.5-11.1); NEUT % 73.8 % (42.8-82.8); PLATELET COUNT 452 K/MM3 (134-434); RBC 3.56 M/mm3 (3.60-5.2); RDW 13.5 % (11.6-15.6); WHITE BLOOD COUNT 13.2 K/mm3 (4.0-10.0)
[2018-02-27] MEDS ORDERED: MAGNESIUM SULF 50% (8.12 MEQ/2 ML-1 GM VIAL) IVPB ONE (09:40)
[2018-02-27] MEDS ORDERED: MAGNESIUM 1GM/D5W - 1 GM/100 ML IVPB IVPB ONE (10:30)
[2018-02-27] MEDS: ERTAPENEM SODIUM 1 GM in SODIUM CHLORIDE 100 ML IVPB SCH (10:59)
[2018-02-27] MEDS: INSULIN (LEVEMIR) 100 UNITS/ML UNITS SQ SCH ×2 (10:59→21:53)
[2018-02-27] MEDS ORDERED: PT OWN MED DRAWER 7, Y5N ONE (12:42)
--- NOTE | 2018-02-27 13:03 | PN ---
Teaching Attending Note Name of Resident: Trudi Damon ATTENDING PHYSICIAN STATEMENT I saw and evaluated the patient. I reviewed the resident's note and discussed the case with the resident. I agree with the resident's findings and plan as documented. SUBJECTIVE: no fever or chills. no abd pain. OBJECTIVE: NAD CV: RRR Lungs: CTAB Abd: soft, NT, ND , NL BS Ext: no edema ASSESSMENT AND PLAN: 77 y/o lady with h/o DM who presented with abd abd pain and dysuria and was found to have UTI with bacteremia and b/l [place] 1- Urosepsis, with bacteremia : WBC cont to improve. - cont ertapenam day 6 2-Urinary retention : failed voiding trial. 3- Uncontrolled DM: A1c: 11.8. - cont levemir 10 BID - cont SSI 4- EVA: resolved. cont to monitor Dispo : HLOC
--- NOTE | 2018-02-27 13:06 | PN ---
Physical Exam: SUBJECTIVE: Patient seen and examined at bedside. Yesterday, pt's daughter in law learned how to administer insulin for pt. She has been afebrile. Today, pt c/o vague discomfort in R chest. Reyes in. Otherwise without complaint; denies JAUREGUI, fever, chills, SOB, or changes in urinary or bowel function. OBJECTIVE: Vital Signs Period Temp Pulse Resp BP Sys/[place] Pulse Ox Last 24 Hr 98.6 F-99.7 F 62-76 16-20 109-128/54-70 95-95 GENERAL: The patient is in good spirits. Sitting up in bed. awake, alert, and fully oriented, in no acute distress. HEAD: Normal with no signs of trauma. EYES: PERRL, extraocular movements intact, sclera anicteric, conjunctiva clear. ENT: Ears normal, nares patent, oropharynx clear without exudates, moist mucous membranes. NECK: Trachea midline, supple. LUNGS: Breath sounds equal, clear to auscultation bilaterally, no wheezes, no crackles, no accessory muscle use. HEART: Regular rate and rhythm, S1, S2 without murmur, rub or gallop. ABDOMEN: Soft, nontender, nondistended, normoactive bowel sounds, no guarding EXTREMITIES: 2+ pt pulses, warm, well-perfused, no edema. : +reyes draining NEUROLOGICAL: interactive, able to move upper and lower extremities. sensation intact PSYCH: Normal mood, normal affect. SKIN: Warm, dry, normal turgor Laboratory Results - last 24 hr 02/27/18 02/27/18 02/27/18 06:00 06:07 11:01 WBC 13.2 H RBC 3.56 L Hgb 11.0 Hct 32.7 MCV 91.9 MCH 30.9 MCHC 33.6 RDW 13.5 Plt Count 452 H MPV 7.5 Absolute Neuts (auto) 9.8 Neutrophils % 73.8 Lymphocytes % 16.2 Monocytes % 7.0 Eosinophils % 2.5 Basophils % 0.5 Nucleated RBC % 0 Sodium 133 L Potassium 4.6 Chloride 97 L Carbon Dioxide 31 Anion Gap 5 L BUN 18 Creatinine 0.9 Creat Clearance w eGFR > 60 POC Glucometer 353 Random Glucose 151 H Calcium 8.3 L Phosphorus 3.4 Magnesium 1.6 L Total Bilirubin 0.4 D AST 22 ALT 29 Alkaline Phosphatase 245 H Total Protein 6.8 Albumin 2.1 L Blood glucose trend 02/26/18 02/26/18 02/26/18 11:21 16:39 21:22 POC Glucometer 361 276 249 02/27/18 02/27/18 05:52 11:01 POC Glucometer 154 353 Active Medications Generic Name Dose Route Start Last Admin Trade Name Freq PRN Reason Stop Dose Admin Heparin Sodium (Porcine) 5,000 unit 02/20/18 06:00 02/27/18 06:12 Heparin - SQ 5,000 unit TID DONG Administration Ertapenem 1 gm/ Sodium 100 mls @ 200 mls/hr 02/22/18 12:45 02/27/18 10:59 Chloride IVPB 200 mls/hr DAILY DONG Administration Protocol Insulin Aspart 1 vial 02/20/18 16:30 02/27/18 11:07 Novolog Vial Sliding Scale - SQ 10 units ACHS DONG Administration Protocol Insulin Detemir 10 units 02/23/18 22:00 02/26/18 21:46 Levemir Vial SQ 10 units HS DONG Administration Insulin Detemir 10 units 02/23/18 10:00 02/27/18 10:59 Levemir Vial SQ 10 units DAILY DONG Administration Imaging 02/19/18 CXR: cardiomegaly, possible mild congestion 02/20/18: 1. extensive urinary bladder wall thickening with perivesical fat stranding is compatible with cystitis. reyes in place. gas in urinary bladder likely from recent reyes catheter placement. 2. bilateral moderate hydroureteronephrosis with periureteral and perinephric fat stranding L>R. these findings are suspicious for ascending pyelonephritis/ureteritis. please correlate clinically. no obstructing urinary tract calculus. the etiology of obstructive uropathy is not definitely identified on this noncontrast CT however may be secondary to extensive urinary bladder wall thickening. 3. mild cardiomegaly. small pericardial effusion trace layering bilateral pleural effusions. 4. pleural-based opacity in the medial L lung base is most likely atelectasis and or scarring. superimposed pneumonia or underlying mass lesion cannot be entirely excluded. 02/20/18: Duplex LLE: no evidence DVT. 1.6x0.8x0.6cm hypoechoic lesion/collection in L popliteal fossa which may be a Plasencia's cyst. 02/25/18: Renal sono: both kidneys unremarkable. Microbiology 02/20/18 00:58 Blood - Peripheral Venous Blood Culture - Final Escherichia Coli Esbl Toxicology Teacher 02/20/18 00:58 Blood - Peripheral Venous Blood Culture - Final Enterobacter Cloacae Lactose Fermenting Neg Bacilli#2 02/19/18 22:18 Urine - Urine Clean Catch Urine Culture - Final Enterobacter Cloacae Escherichia Coli Esbl Toxicology Teacher 02/23/18 11:40 Blood - Peripheral Venous Blood Culture - Preliminary NO GROWTH OBTAINED AFTER 96 HOURS, INCUBATION TO CONTINUE FOR 1 DAYS. 02/23/18 11:30 Blood - Peripheral Venous Blood Culture - Preliminary NO GROWTH OBTAINED AFTER 96 HOURS, INCUBATION TO CONTINUE FOR 1 DAYS. ASSESSMENT/PLAN: 77 y/o F with PMH DM, HTN, HLD, who presents to the ED c/o dysuria, fever, and nausea. Pt admitted for sepsis 2/2 UTI, r/o alternate abdominal pathology. #Sepsis 2/2 enterobacter, ESBL UTI -improving -white ct continues to gradually improve, on abx. 14.1 to 13.2 -continue ertapenem 1g IVPB qd (Today is Day 6) -repeat blood cx (-) have been neg for 96hrs -isolation precautions -ID: Dr. Samuels #Chronic neurogenic bladder -will need d/c on reyes or self cath instruction -Urology: Dr. Layne #DM (A1c 11.8%). Poorly controlled -d/w ; will learn how to inject insulin to help. very motivated -daughter in law learned to inject -continue levemir 10mg SQ BID -ISS ACHS -BGM #HTN-controlled -currently not on meds #HLD -repeat lipid panel, still with low values #hypomagnesemia -Repleted with 1gm mg sulfate #LLE TTP, r/o DVT-resolved (+) varicose veins -Duplex (-) for DVT #EVA possible 2/2 poor PO intake, [id number] -renal sono- WNL -Nephro: Dr. Jose #F/E/N monitor off IVF continue to follow lytes sodium controlled, diabetic diet #PPX Hep 5000 U SQ TID #Dispo continued monitoring on med-surg . continued improvement in white count Visit type - Emergency Visit Emergency Visit: No - New Patient This patient is new to me today: No - Critical Care Critical Care patient: No
--- NOTE | 2018-02-27 21:20 | PN ---
Progress Note (short form) - Note Progress Note: nephrology coverage Problems UTI S/P EVA Hyponatremia Hypokalemia Hypocalcemia Neurogenic Bladder PMHx DM, HTN, HLD 77 y/o F with PMH DM, HTN, HLD, who presented with abdominal pain and dysuria. The patient started on IV fluids and IV antibiotics for UTI. Current Medications Heparin Sodium (Porcine) (Heparin -) 5,000 unit SQ TID DONG Last Admin: 02/27/18 14:00 Dose: 5,000 unit Ertapenem 1 gm/ Sodium (Chloride) 100 mls @ 200 mls/hr IVPB DAILY [facility]; Protocol Last Admin: 02/27/18 10:59 Dose: 200 mls/hr Insulin Aspart (Novolog Vial Sliding Scale -) 1 vial SQ ACHS DONG; Protocol Last Admin: 02/27/18 16:54 Dose: 4 units Insulin Detemir (Levemir Vial) 10 units SQ HS DONG Last Admin: 02/26/18 21:46 Dose: 10 units Insulin Detemir (Levemir Vial) 10 units SQ DAILY [facility] Last Admin: 02/27/18 10:59 Dose: 10 units Last Vital Signs Temp Pulse Resp BP Pulse Ox 99.0 F 63 20 114/65 95 02/27/18 21:06 02/27/18 21:06 02/27/18 21:06 02/27/18 21:06 02/27/18 09:00 lungs clear heart reg abd soft nontender ext no edema CBC, BMP 02/27/18 06:07 02/27/18 06:00 IMP- resolved electrolyte disorders Plan- monitor one more day may need no further renal interventions
[2018-02-27] MEDS ORDERED: INSULIN (NOVOLOG) ASPART 100 UNITS/ML 10ML VIAL ONE (21:33)
[2018-02-28] MEDS: HEPARIN NA (PORCINE) 5,000 UNITS/ML 1ML VIAL SQ SCH ×3 (06:18→21:14)
[2018-02-28] MEDS: INSULIN SLIDING SCALE (NOVOLOG) 1 VIAL SQ SCH ×4 (06:18→21:19)
[2018-02-28 07:43] LABS: BASO % 0.7 % (0-2.0); EOS % 2.6 % (0-4.5); HEMATOCRIT 36.2 % (32.4-45.2); LYMPH % 15.7 % (8-40); MCH 30.8 pg (25.7-33.7); MCHC 33.3 g/dl (32.0-36.0); MEAN CELL VOLUME 92.6 fl (80-96); MEAN PLT VOLUME 7.5 fl (7.5-11.1); MONO % 6.1 % (3.8-10.2); NEUT % 74.9 % (42.8-82.8); PLATELET COUNT 557 K/MM3 (134-434); RBC 3.91 M/mm3 (3.60-5.2); RDW 13.6 % (11.6-15.6); WHITE BLOOD COUNT 12.4 K/mm3 (4.0-10.0)
[2018-02-28 08:09] LABS: CHLORIDE 95 mmol/L (98-107); POTASSIUM 5.2 mmol/L (3.5-5.1); SODIUM 134 mmol/L (136-145)
[2018-02-28 08:31] LABS: ANION GAP 9 (8-16); BLOOD UREA NITROGEN 22 mg/dL (7-18); CALCIUM 8.5 mg/dL (8.5-10.1); CO2 30 mmol/L (21-32); CREATININE 0.9 mg/dL (0.55-1.02); GLUCOSE,RANDOM 105 mg/dL (74-106)
[2018-02-28] MEDS: INSULIN (LEVEMIR) 100 UNITS/ML UNITS SQ SCH ×2 (10:34→21:14)
[2018-02-28] MEDS: ERTAPENEM SODIUM 1 GM in SODIUM CHLORIDE 100 ML IVPB SCH (10:34)
--- NOTE | 2018-02-28 17:47 | PN ---
Progress Note (short form) - Note Progress Note: Subjective: denies any abd pain, no fever or chills. No events over night Objective: Vital Signs: Last Vital Signs Temp Pulse Resp BP Pulse Ox 98.3 F 72 20 109/57 95 02/28/18 14:00 02/28/18 14:00 02/28/18 14:00 02/28/18 14:00 02/28/18 09:00 Laboratory Results - last 24 hr 02/27/18 02/28/18 02/28/18 21:52 05:53 05:53 WBC 12.4 H RBC 3.91 Hgb 12.0 Hct 36.2 MCV 92.6 MCH 30.8 MCHC 33.3 RDW 13.6 Plt Count 557 H D MPV 7.5 Absolute Neuts (auto) 9.3 Neutrophils % 74.9 Lymphocytes % 15.7 Monocytes % 6.1 Eosinophils % 2.6 Basophils % 0.7 Nucleated RBC % 0 Sodium 134 L Potassium 5.2 H Chloride 95 L Carbon Dioxide 30 Anion Gap 9 BUN 22 H Creatinine 0.9 Creat Clearance w eGFR > 60 POC Glucometer 264 Random Glucose 105 Calcium 8.5 02/28/18 02/28/18 06:17 11:44 WBC RBC Hgb Hct MCV MCH MCHC RDW Plt Count MPV Absolute Neuts (auto) Neutrophils % Lymphocytes % Monocytes % Eosinophils % Basophils % Nucleated RBC % Sodium Potassium Chloride Carbon Dioxide Anion Gap BUN Creatinine Creat Clearance w eGFR POC Glucometer 118 203 Random Glucose Calcium Physical Exam: NAD CV: RRR Lungs: CTAB Abd: soft, NT, ND , NL BS Ext: no edema ASSESSMENT AND PLAN: 77 y/o lady with h/o DM who presented with abd abd pain and dysuria and was found to have UTI with bacteremia and b/l [place] 1- Urosepsis, with bacteremia: WBC cont to improve. - cont ertapenam day 7 2-Urinary retention : failed voiding trial. cont reyes 3- Uncontrolled DM: A1c: 11.8. - cont levemir 10 BID - cont SSI 4- EVA: resolved. cont to monitor Dispo: HLOC Visit type - Emergency Visit Emergency Visit: Yes ED Registration Date: 02/20/18 Care time: The patient presented to the Emergency Department on the above date and was hospitalized for further evaluation of their emergent condition. - New Patient This patient is new to me today: No - Critical Care Critical Care patient: No
[2018-02-28] MEDS ORDERED: INSULIN (NOVOLOG) ASPART 100 UNITS/ML 10ML VIAL ONE (18:26)
--- NOTE | 2018-02-28 20:12 | PN ---
Progress Note (short form) - Note Progress Note: nephrology coverage Problems UTI S/P EVA Hyponatremia Hypokalemia Hypocalcemia Neurogenic Bladder PMHx DM, HTN, HLD 77 y/o F with PMH DM, HTN, HLD, who presented with abdominal pain and dysuria. The patient started on IV fluids and IV antibiotics for UTI. Current Medications Current Medications Heparin Sodium (Porcine) (Heparin -) 5,000 unit SQ TID DONG Last Admin: 02/28/18 13:19 Dose: 5,000 unit Ertapenem 1 gm/ Sodium (Chloride) 100 mls @ 200 mls/hr IVPB DAILY [facility]; Protocol Last Admin: 02/28/18 10:34 Dose: 200 mls/hr Insulin Aspart (Novolog Vial Sliding Scale -) 1 vial SQ ACHS DONG; Protocol Last Admin: 02/28/18 16:56 Dose: 8 units Insulin Detemir (Levemir Vial) 10 units SQ HS DONG Last Admin: 02/27/18 21:53 Dose: 10 units Insulin Detemir (Levemir Vial) 10 units SQ DAILY DONG Last Admin: 02/28/18 10:34 Dose: 10 units Last Vital Signs Temp Pulse Resp BP Pulse Ox 98.3 F 72 20 109/57 95 02/28/18 14:00 02/28/18 14:00 02/28/18 14:00 02/28/18 14:00 02/28/18 09:00 lungs clear heart reg abd soft nontender ext no edema CBC, BMP 02/28/18 05:53 02/28/18 18:10 CBC, BMP 02/27/18 06:07 02/27/18 06:00 IMP- Prerenal azotemia tendency to hyperkalemia UTI DM Plan- better glycemic control hyperkalemia can be exacerbated by hyperglycemia
[2018-03-01] MEDS: HEPARIN NA (PORCINE) 5,000 UNITS/ML 1ML VIAL SQ SCH ×3 (06:06→21:19)
[2018-03-01] MEDS: INSULIN SLIDING SCALE (NOVOLOG) 1 VIAL SQ SCH ×4 (06:06→21:19)
[2018-03-01 07:42] LABS: BASO % 0.7 % (0-2.0); HEMATOCRIT 33.3 % (32.4-45.2); HEMOGLOBIN 11.2 GM/dL (10.7-15.3); MCHC 33.8 g/dl (32.0-36.0); MEAN CELL VOLUME 91.8 fl (80-96); MONO % 7.2 % (3.8-10.2); NEUT % 72.1 % (42.8-82.8); PLATELET COUNT 519 K/MM3 (134-434); RBC 3.63 M/mm3 (3.60-5.2); RDW 13.6 % (11.6-15.6); WHITE BLOOD COUNT 10.6 K/mm3 (4.0-10.0)
[2018-03-01 08:04] LABS: ANION GAP 5 (8-16); BLOOD UREA NITROGEN 24 mg/dL (7-18); CALCIUM 8.5 mg/dL (8.5-10.1); CHLORIDE 100 mmol/L (98-107); CO2 29 mmol/L (21-32); GLUCOSE,RANDOM 186 mg/dL (74-106); POTASSIUM 4.7 mmol/L (3.5-5.1); SODIUM 134 mmol/L (136-145)
[2018-03-01 08:35] LABS: MAGNESIUM 1.9 mg/dL (1.8-2.4); PHOSPHOROUS 3.4 mg/dL (2.5-4.9)
[2018-03-01] MEDS: INSULIN (LEVEMIR) 100 UNITS/ML UNITS SQ SCH ×2 (10:29→21:19)
[2018-03-01] MEDS: ERTAPENEM SODIUM 1 GM in SODIUM CHLORIDE 100 ML IVPB SCH (10:30)
--- NOTE | 2018-03-01 11:04 | PN ---
Progress Note, Physician Chief Complaint: The patient is seen in her room Family with her. Reyes catheter back in. Clear urine noted. Seems comfortable. History of Present Illness: This is a 77 y/o F with PMH DM, HTN, HLD, who presented to the ED c/o dysuria, fever, and nausea. She had dysuria for three months. She was started on IV Abx with significant improvement of symptoms Has neurogenic bladder and urinary retention. Maintains good urine output. Reyes catheter draining copious amounts of urine - Current Medication List Current Medications: Active Medications Heparin Sodium (Porcine) (Heparin -) 5,000 unit SQ TID [facility] Last Admin: 03/01/18 06:06 Dose: 5,000 unit Ertapenem 1 gm/ Sodium (Chloride) 100 mls @ 200 mls/hr IVPB DAILY [facility]; Protocol Last Admin: 03/01/18 10:30 Dose: 200 mls/hr Insulin Aspart (Novolog Vial Sliding Scale -) 1 vial SQ ACHS [facility]; Protocol Last Admin: 03/01/18 06:06 Dose: 4 units Insulin Detemir (Levemir Vial) 10 units SQ HS [facility] Last Admin: 02/28/18 21:14 Dose: 10 units Insulin Detemir (Levemir Vial) 10 units SQ DAILY [facility] Last Admin: 03/01/18 10:29 Dose: 10 units - Objective Vital Signs: Vital Signs Temperature 97.9 F 03/01/18 10:00 Pulse Rate 76 03/01/18 10:00 Respiratory Rate 18 03/01/18 10:00 Blood Pressure 108/61 03/01/18 10:00 O2 Sat by Pulse Oximetry (%) 95 02/28/18 21:00 Constitutional: Yes: No Distress, Calm Eyes: Yes: Conjunctiva Clear HENT: Yes: Normocephalic Cardiovascular: Yes: Regular Rate and Rhythm, S1, S2 Respiratory: Yes: CTA Bilaterally Gastrointestinal: Yes: Normal Bowel Sounds, Soft Genitourinary: Yes: Reyes Present. No: CVA Tenderness - Left, CVA Tenderness - Right Edema: No Labs: CBC, BMP 03/01/18 07:24 03/01/18 07:24 Problem List - Problems (1) EVA (acute kidney injury) Code(s): N17.9 - ACUTE KIDNEY FAILURE, UNSPECIFIED (2) Diabetes mellitus Code(s): E11.9 - TYPE 2 DIABETES MELLITUS WITHOUT COMPLICATIONS (3) Abdominal pain Code(s): R10.9 - UNSPECIFIED ABDOMINAL PAIN Qualifiers: Abdominal location: left lower quadrant Qualified Code(s): R10.32 - Left lower quadrant pain (4) Hyperlipidemia Code(s): E78.5 - HYPERLIPIDEMIA, UNSPECIFIED (5) Hypertension Code(s): I10 - ESSENTIAL (PRIMARY) HYPERTENSION (6) Neurogenic bladder Code(s): N31.9 - NEUROMUSCULAR DYSFUNCTION OF BLADDER, UNSPECIFIED Assessment/Plan 77 y/o F with PMH DM, HTN, HLD, who presented with abdominal pain and dysuria. The patient started on IV fluids and IV antibiotics for UTI. The patient's clinical status better. The patient has had Acute Urinary Retention from Neurogenic bladder.Renal functions at or close to her baseline. Acute kidney Injury... Possibly related to the Septic process, Nueurogenic bladder and the Renal hemodynamic changes. Renal functions have improved. Hypokalemia: improved Hyponatremia...Stable. Chronic Leukocytosis..... Improving. Now 10.6 Hypocalcemia...but when corrected for the hypoalbuminemia, in acceptable range. Neurogenic bladder: In need of indwelling reyes when discharged. Suggest: KCl supplements PRN. IV antibiotics as ordered. Will monitor the renal functions with you. Thank you. Meg Jose MD
--- NOTE | 2018-03-01 12:09 | PN ---
Teaching Attending Note Name of Resident: Trudi Damon ATTENDING PHYSICIAN STATEMENT I saw and evaluated the patient. I reviewed the resident's note and discussed the case with the resident. I agree with the resident's findings and plan as documented. SUBJECTIVE: No fever or chills . No abd pain, no CP. OBJECTIVE: NAD CV: RRR Lungs: CTAB Abd: soft, NT, ND , NL BS Ext: no edema ASSESSMENT AND PLAN: 77 y/o lady with h/o DM who presented with abd abd pain and dysuria and was found to have UTI with bacteremia and b/l [place] 1- Urosepsis, with bacteremia: WBC cont to improve. - cont ertapenam day 04/27 - d/w manager assessment, continuing antibiotic through the infusion center is not possible. 2-Urinary retention :voiding trial again today 3- Uncontrolled DM: A1c: 11.8. - cont levemir 10 BID - cont SSI 4- EVA: resolved.
--- NOTE | 2018-03-01 17:34 | PN ---
Physical Exam: SUBJECTIVE: Patient seen and examined at bedside. No acute events overnight. Today, pt with family at bedside. Antibiotic regimen discussed, expressed verbal understanding. Pt denies JAUREGUI, fever, chills, dysuria. Trialed off reyes however still with retention. OBJECTIVE: Vital Signs Period Temp Pulse Resp BP Sys/[place] Pulse Ox Last 24 Hr 97.9 F-99.3 F 68-89 16-18 96-114/57-65 95-97 GENERAL: The patient is resting comfortably. awake, alert, and fully oriented, in no acute distress. Eating strawberries HEAD: Normal with no signs of trauma. EYES: PERRL, extraocular movements intact, sclera anicteric, conjunctiva clear. ENT: Ears normal, nares patent, oropharynx clear without exudates, moist mucous membranes. NECK: Trachea midline, supple. LUNGS: Breath sounds equal, clear to auscultation bilaterally, no wheezes, no crackles, no accessory muscle use. HEART: Regular rate and rhythm, S1, S2 without murmur, rub or gallop. ABDOMEN: Soft, nontender, nondistended, normoactive bowel sounds, no guarding EXTREMITIES: 2+ pt pulses, warm, well-perfused, no edema. NEUROLOGICAL: interactive, moving upper and lower extremities. sensation intact. Tajik speaking PSYCH: Normal mood, normal affect. SKIN: Warm, dry, normal turgor Laboratory Results - last 24 hr 03/01/18 03/01/18 03/01/18 05:28 07:24 07:24 WBC 10.6 H RBC 3.63 Hgb 11.2 Hct 33.3 MCV 91.8 MCH 31.0 MCHC 33.8 RDW 13.6 Plt Count 519 H MPV 7.0 L Absolute Neuts (auto) 7.6 Neutrophils % 72.1 Lymphocytes % 17.0 Monocytes % 7.2 Eosinophils % 3.0 Basophils % 0.7 Nucleated RBC % 0 Sodium 134 L Potassium 4.7 Chloride 100 Carbon Dioxide 29 Anion Gap 5 L BUN 24 H Creatinine 1.0 Creat Clearance w eGFR 53.62 POC Glucometer 238 Random Glucose 186 H Calcium 8.5 Phosphorus 3.4 Magnesium 1.9 Blood glucose 02/28/18 02/28/18 03/01/18 16:54 21:17 05:28 POC Glucometer 316 297 238 03/01/18 03/01/18 12:08 16:58 POC Glucometer 353 286 Active Medications Generic Name Dose Route Start Last Admin Trade Name Gueroq PRN Reason Stop Dose Admin Heparin Sodium (Porcine) 5,000 unit 02/20/18 06:00 03/01/18 13:52 Heparin - SQ 5,000 unit TID [facility] Administration Ertapenem 1 gm/ Sodium 100 mls @ 200 mls/hr 02/22/18 12:45 03/01/18 10:30 Chloride IVPB 200 mls/hr DAILY [facility] Administration Protocol Insulin Aspart 1 vial 02/20/18 16:30 03/01/18 16:59 Novolog Vial Sliding Scale - SQ 6 units ACHS [facility] Administration Protocol Insulin Detemir 10 units 02/23/18 22:00 02/28/18 21:14 Levemir Vial SQ 10 units HS [facility] Administration Insulin Detemir 10 units 02/23/18 10:00 03/01/18 10:29 Levemir Vial SQ 10 units DAILY [facility] Administration Imaging 02/19/18 CXR: cardiomegaly, possible mild congestion 02/20/18: 1. extensive urinary bladder wall thickening with perivesical fat stranding is compatible with cystitis. reyes in place. gas in urinary bladder likely from recent reyes catheter placement. 2. bilateral moderate hydroureteronephrosis with periureteral and perinephric fat stranding L>R. these findings are suspicious for ascending pyelonephritis/ureteritis. please correlate clinically. no obstructing urinary tract calculus. the etiology of obstructive uropathy is not definitely identified on this noncontrast CT however may be secondary to extensive urinary bladder wall thickening. 3. mild cardiomegaly. small pericardial effusion trace layering bilateral pleural effusions. 4. pleural-based opacity in the medial L lung base is most likely atelectasis and or scarring. superimposed pneumonia or underlying mass lesion cannot be entirely excluded. 02/20/18: Duplex LLE: no evidence DVT. 1.6x0.8x0.6cm hypoechoic lesion/collection in L popliteal fossa which may be a Plasencia's cyst. 02/25/18: Renal sono: both kidneys unremarkable. Microbiology 02/23/18 11:40 Blood - Peripheral Venous Blood Culture - Final NO GROWTH AFTER 5 DAYS INCUBATION 02/23/18 11:30 Blood - Peripheral Venous Blood Culture - Final NO GROWTH AFTER 5 DAYS INCUBATION 02/20/18 00:58 Blood - Peripheral Venous Blood Culture - Final Escherichia Coli Esbl [employer] Programmer 02/20/18 00:58 Blood - Peripheral Venous Blood Culture - Final Enterobacter Cloacae Lactose Fermenting Neg Bacilli#2 02/19/18 22:18 Urine - Urine Clean Catch Urine Culture - Final Enterobacter Cloacae Escherichia Coli Esbl [employer] Programmer ASSESSMENT/PLAN: 77 y/o F with PMH DM, HTN, HLD, who presents to the ED c/o dysuria, fever, and nausea. Pt admitted for sepsis 2/2 UTI, r/o alternate abdominal pathology. #Sepsis 2/2 enterobacter, ESBL UTI -improving -white ct continues to gradually improve, on abx. 12.4 to 10.6 -continue ertapenem 1g IVPB qd (Today is Day 04/27) -repeat blood cx (-) have been neg -isolation precautions -ID: Dr. Samuels #Chronic neurogenic bladder -will need d/c on reyes or self cath instruction; still retaining and requiring reyes -Urology: Dr. Layne #DM (A1c 11.8%). Poorly controlled -d/w ; will learn how to inject insulin to help. very motivated -daughter in law learned to inject -continue levemir 10mg SQ BID -ISS ACHS -BGM #HTN-controlled -currently not on meds #HLD -repeat lipid panel, still with low values #LLE TTP, r/o DVT-resolved (+) varicose veins -Duplex (-) for DVT #EVA possible 2/2 poor PO intake, [id number] -renal sono- WNL -Nephro: Dr. Jose #F/E/N monitor off IVF continue to follow lytes sodium controlled, diabetic diet #PPX Hep 5000 U SQ TID #Dispo improved white count for d/c planning, goal PICC tomorrow Visit type - Emergency Visit Emergency Visit: No - New Patient This patient is new to me today: No - Critical Care Critical Care patient: No
[2018-03-02] MEDS: HEPARIN NA (PORCINE) 5,000 UNITS/ML 1ML VIAL SQ SCH (06:25)
[2018-03-02] MEDS: INSULIN SLIDING SCALE (NOVOLOG) 1 VIAL SQ SCH ×2 (06:25→12:30)
[2018-03-02] MEDS ORDERED: INSULIN (NOVOLOG) ASPART 100 UNITS/ML 10ML VIAL ONE ×2 (06:27→12:27)
[2018-03-02 07:41] LABS: BASO % 0.5 % (0-2.0); EOS % 3.1 % (0-4.5); HEMATOCRIT 32.3 % (32.4-45.2); HEMOGLOBIN 10.5 GM/dL (10.7-15.3); LYMPH % 18.3 % (8-40); MCH 30.1 pg (25.7-33.7); MCHC 32.3 g/dl (32.0-36.0); MEAN CELL VOLUME 92.9 fl (80-96); MONO % 8.8 % (3.8-10.2); NEUT % 69.3 % (42.8-82.8); PLATELET COUNT 542 K/MM3 (134-434); RBC 3.48 M/mm3 (3.60-5.2); RDW 13.8 % (11.6-15.6); WHITE BLOOD COUNT 11.9 K/mm3 (4.0-10.0)
[2018-03-02 08:07] LABS: ANION GAP 7 (8-16); BLOOD UREA NITROGEN 21 mg/dL (7-18); CALCIUM 8.4 mg/dL (8.5-10.1); CHLORIDE 101 mmol/L (98-107); CO2 27 mmol/L (21-32); CREATININE 0.9 mg/dL (0.55-1.02); GLUCOSE,RANDOM 174 mg/dL (74-106); POTASSIUM 4.9 mmol/L (3.5-5.1); SODIUM 135 mmol/L (136-145)
[2018-03-02] MEDS ORDERED: PICC LINE 8 ML FLUSH PROTOCOL IVPUSH PRN (08:28)
[2018-03-02] MEDS: ERTAPENEM SODIUM 1 GM in SODIUM CHLORIDE 100 ML IVPB SCH (09:23)
[2018-03-02] MEDS: INSULIN (LEVEMIR) 100 UNITS/ML UNITS SQ SCH (09:23)
--- NOTE | 2018-03-02 12:23 | PN ---
Progress Note, Physician Chief Complaint: The patient is seen in her room family with her. Reyes catheter back in. Copious amounts of clear urine noted. No new developments. Abx well tolerated. History of Present Illness: This is a 77 y/o F with PMH DM, HTN, HLD, who presented to the ED c/o dysuria, fever, and nausea. Has neurogenic bladder. Maintains good urine output. Reyes catheter draining copious amounts of urine - Current Medication List Current Medications: Active Medications Heparin Sodium (Porcine) (Heparin -) 5,000 unit SQ TID [facility] Last Admin: 03/02/18 06:25 Dose: 5,000 unit IV Flush (Picc Line Flush) 8 ml IVPUSH PRN PRN PRN Reason: Protocol Ertapenem 1 gm/ Sodium (Chloride) 100 mls @ 200 mls/hr IVPB DAILY [facility]; Protocol Last Admin: 03/02/18 09:23 Dose: 200 mls/hr Insulin Aspart (Novolog Vial Sliding Scale -) 1 vial SQ ACHS [facility]; Protocol Last Admin: 03/02/18 06:25 Dose: 2 units Insulin Detemir (Levemir Vial) 10 units SQ HS [facility] Last Admin: 03/01/18 21:19 Dose: 10 units Insulin Detemir (Levemir Vial) 10 units SQ DAILY [facility] Last Admin: 03/02/18 09:23 Dose: 10 units - Objective Vital Signs: Vital Signs Temperature 98.5 F 03/02/18 09:00 Pulse Rate 69 03/02/18 09:00 Respiratory Rate 18 03/02/18 09:00 Blood Pressure 101/53 03/02/18 09:00 O2 Sat by Pulse Oximetry (%) 98 03/02/18 09:00 Constitutional: Yes: No Distress, Calm Eyes: Yes: Conjunctiva Clear HENT: Yes: Normocephalic Neck: Yes: Trachea Midline Cardiovascular: Yes: S1, S2 Respiratory: Yes: Regular, Diminished Gastrointestinal: Yes: Normal Bowel Sounds, Soft Genitourinary: Yes: CVA Tenderness - Right, Reyes Present. No: CVA Tenderness - Left Labs: CBC, BMP 03/02/18 06:30 03/02/18 06:30 Problem List - Problems (1) EVA (acute kidney injury) Code(s): N17.9 - ACUTE KIDNEY FAILURE, UNSPECIFIED (2) Diabetes mellitus Code(s): E11.9 - TYPE 2 DIABETES MELLITUS WITHOUT COMPLICATIONS (3) Abdominal pain Code(s): R10.9 - UNSPECIFIED ABDOMINAL PAIN Qualifiers: Abdominal location: left lower quadrant Qualified Code(s): R10.32 - Left lower quadrant pain (4) Hyperlipidemia Code(s): E78.5 - HYPERLIPIDEMIA, UNSPECIFIED (5) Hypertension Code(s): I10 - ESSENTIAL (PRIMARY) HYPERTENSION (6) Neurogenic bladder Code(s): N31.9 - NEUROMUSCULAR DYSFUNCTION OF BLADDER, UNSPECIFIED Assessment/Plan 77 y/o F with PMH DM, HTN, HLD, who presented with abdominal pain and dysuria. The patient's clinical status better. The patient has had Urinary Retention from Neurogenic bladder.Renal functions at or close to her baseline. Acute kidney Injury... Possibly related to the Septic process, Nueurogenic bladder and the Renal hemodynamic changes. Renal functions have improved. Hypokalemia: improved Hyponatremia...Stable. Chronic Leukocytosis..... Improving. Now 10.6 Hypocalcemia...but when corrected for the hypoalbuminemia, in acceptable range. Neurogenic bladder: In need of indwelling reyes when discharged. Suggest: reyes to drainage KCl supplements PRN. IV antibiotics as ordered. Will monitor the renal functions with you. Thank you. Meg Jose MD
[2018-03-02 13:58] VITALS: BP 120/65; PULSE 66; TEMP 97.5
--- NOTE | 2018-03-02 17:27 | PN ---
Teaching Attending Note Name of Resident: Trudi Damon ATTENDING PHYSICIAN STATEMENT I saw and evaluated the patient. I reviewed the resident's note and discussed the case with the resident. I agree with the resident's findings and plan as documented. SUBJECTIVE: No fever or chill. no abd OBJECTIVE: NAD CV: RRR Lungs: CTAB Abd: soft, NT, ND , NL BS Ext: no edema ASSESSMENT AND PLAN: 77 y/o lady with h/o DM who presented with abd abd pain and dysuria and was found to have UTI with bacteremia and b/l [place] 1- Urosepsis, with bacteremia: - cont ertapenam day 05/28 - d/w SW. could arrange for Abx through infusion center . 2-Urinary retention :failed voiding trial. dc with reyes. f/u with uro as out pt 3- Uncontrolled DM: A1c: 11.8. - cont levemir 10 BID - cont SSI - family expressed the willingness and ability to pay for her insulin until [place] to [place] 4- EVA: resolved. dc home . Abx at infusion center . f/u with [facility] and uro
--- NOTE | 2018-03-02 21:20 | DS ---
Physical Exam: SUBJECTIVE: Patient seen and examined at bedside. No acute events overnight. Today, pt without complaint. States that she has no pain. With family at bedside. OBJECTIVE: Vital Signs Period Temp Pulse Resp BP Sys/[place] Pulse Ox Last 24 Hr 97.5 F-98.7 F 66-85 18-18 101-124/53-67 98 PHYSICAL EXAM GENERAL: The patient is resting comfortably. awake, alert, and fully oriented, in no acute distress. HEAD: Normal with no signs of trauma. EYES: PERRL, extraocular movements intact, sclera anicteric, conjunctiva clear. ENT: Ears normal, nares patent, oropharynx clear without exudates, moist mucous membranes. NECK: Trachea midline, supple. LUNGS: Breath sounds equal, clear to auscultation bilaterally, no wheezes, no crackles, no accessory muscle use. HEART: Regular rate and rhythm, S1, S2 without murmur, rub or gallop. ABDOMEN: Soft, nontender, nondistended, normoactive bowel sounds, no guarding EXTREMITIES: 2+ pt pulses, warm, well-perfused, no edema. NEUROLOGICAL: interactive, moving upper and lower extremities. sensation intact. Eritrean speaking : +reyes draining PSYCH: Normal mood, normal affect. SKIN: Warm, dry, normal turgor LABS WBC Trend 02/19/18 02/20/18 02/21/18 19:51 07:55 11:25 WBC 15.0 H 12.8 H 18.0 H D 02/22/18 02/23/18 02/24/18 07:00 08:45 07:30 WBC 22.8 H 21.9 H 22.0 H 02/25/18 02/26/18 02/27/18 06:20 08:38 06:07 WBC 16.7 H 14.1 H 13.2 H 02/28/18 03/01/18 03/02/18 05:53 07:24 06:30 WBC 12.4 H 10.6 H 11.9 H Renal fnc 02/19/18 02/20/18 02/21/18 19:51 07:55 07:00 BUN 29 H 28 H 19 H Creatinine 1.6 H 1.3 H 1.1 H 02/22/18 02/23/18 02/24/18 07:00 06:45 07:30 BUN 16 16 17 Creatinine 1.0 0.9 0.9 02/25/18 02/27/18 02/28/18 06:00 06:00 05:53 BUN 15 18 22 H Creatinine 0.8 0.9 0.9 03/01/18 03/02/18 07:24 06:30 BUN 24 H 21 H Creatinine 1.0 0.9 Blood glucose testing 02/20/18 02/20/18 02/21/18 06:18 22:15 16:47 POC Glucometer 230.60464 247 294 02/21/18 02/22/18 02/23/18 21:35 16:50 06:45 POC Glucometer 340 209 261 02/23/18 02/24/18 02/24/18 22:04 05:30 17:25 POC Glucometer 260 152 198 02/25/18 02/25/18 02/26/18 05:03 21:06 11:21 POC Glucometer 104 247 361 02/27/18 02/27/18 03/01/18 05:52 16:53 12:08 POC Glucometer 154 213 353 03/01/18 03/01/18 03/02/18 16:58 21:17 06:08 POC Glucometer 286 317 191 03/02/18 10:55 POC Glucometer 337 Platelets 02/19/18 02/20/18 02/21/18 19:51 07:55 11:25 Plt Count 222 185 194 02/22/18 02/23/18 02/24/18 07:00 08:45 07:30 Plt Count 231 237 308 D 02/25/18 02/26/18 02/27/18 06:20 08:38 06:07 Plt Count 340 450 H D 452 H 02/28/18 03/01/18 03/02/18 05:53 07:24 06:30 Plt Count 557 H D 519 H 542 H Urinalysis 02/20/18 04:48 Urine Color Yellow Urine Appearance Cloudy Urine pH 6.0 Ur Specific [place] 1.010 Urine Glucose (UA) 3+ H Urine Ketones Trace H Urine Blood 2+ H Urine Nitrite Negative Urine Bilirubin Negative Urine Urobilinogen Negative Ur Leukocyte Esterase 3+ H Urine WBC (Auto) 283 Imaging 02/19/18 CXR: cardiomegaly, possible mild congestion 02/20/18: 1. extensive urinary bladder wall thickening with perivesical fat stranding is compatible with cystitis. reyes in place. gas in urinary bladder likely from recent reyes catheter placement. 2. bilateral moderate hydroureteronephrosis with periureteral and perinephric fat stranding L>R. these findings are suspicious for ascending pyelonephritis/ureteritis. please correlate clinically. no obstructing urinary tract calculus. the etiology of obstructive uropathy is not definitely identified on this noncontrast CT however may be secondary to extensive urinary bladder wall thickening. 3. mild cardiomegaly. small pericardial effusion trace layering bilateral pleural effusions. 4. pleural-based opacity in the medial L lung base is most likely atelectasis and or scarring. superimposed pneumonia or underlying mass lesion cannot be entirely excluded. 02/20/18: Duplex LLE: no evidence DVT. 1.6x0.8x0.6cm hypoechoic lesion/collection in L popliteal fossa which may be a Plasencia's cyst. 02/25/18: Renal sono: both kidneys unremarkable. Microbiology 02/23/18 11:40 Blood - Peripheral Venous Blood Culture - Final NO GROWTH AFTER 5 DAYS INCUBATION 02/23/18 11:30 Blood - Peripheral Venous Blood Culture - Final NO GROWTH AFTER 5 DAYS INCUBATION 02/20/18 00:58 Blood - Peripheral Venous Blood Culture - Final Escherichia Coli Esbl [employer] Aircraft Controller 02/20/18 00:58 Blood - Peripheral Venous Blood Culture - Final Enterobacter Cloacae Lactose Fermenting Neg Bacilli#2 02/19/18 22:18 Urine - Urine Clean Catch Urine Culture - Final Enterobacter Cloacae Escherichia Coli Esbl Target Aircraft Controller HOSPITAL COURSE: Date of Admission:02/20/18 Date of Discharge: 03/02/18 Admit diagnosis: sepsis 2/2 UTI 77 y/o F with PMH DM, HTN, HLD, who presents to the ED c/o dysuria, fever, and nausea. As per pt, over the past three months she has had dysuria. She is unable to quantify whether she had frequency during this time. Granddaughter explains that while pt was in [place], she was seen by various physicians who were "unable to find out what was wrong" with her. Pt states that she had blood taken on numerous occasions for this reason and had an "infection" in her urine before. More recently, pt with nausea (without emesis), fever, decreased appetite, and diffuse abdominal pain over the last 2-3 days. She also c/o new "left corey pain." Denies JAUREGUI, chills, SOB, chest pain or pressure, or changes in bowel function. Pt lives in [place] and has been in the states for the past 1- 2 months visiting family. Granddaughter states that she is leaving to go back home on 02/23/18. Pt was found to have UTI as suggested by UA, and ucx grew enterobacter and ESBL. Pt also bacteremic. She was admitted for sepsis 2/2 ESBL, enterobacter UTI. Pt white count had a peak of 22.8k, four days into hospital stay. She was tx with IV abx. Initially on rocephin 1g IVPB qd, however was changed to ertapenem 1g IVPB qd upon return of culture and sensitivities. Pt was continued on ertapenem for 9 days and will receive the remaining 5 days after d/c at the infusion center. Her sx and white count improved. During her hospitalization, pt was also unsuccessfully trialed off reyes, thus she will be d/c with reyes and rec urology f/u as well as f/u at [facility]. Concerning her DM, she is instructed to take levemir at home, as well as insulin sliding scale. This has been discussed at length w/her family who is in agreement. All questions answered and explained in detail. For her EVA, pt was maintained on gentle IVF hydration. Minutes to complete discharge: 44 Discharge Summary Reason For Visit: FEVER Condition: Improved - Instructions Diet, Activity, Other Instructions: You were in the hospital because you had a urinary tract infection. You were treated with IV antibiotics. Your visit You were seen by the medicine and infection teams Medications 1) You are being placed on new medications for your diabetes: -Levemir 10 units in the morning every day -Before meals, use insulin sliding scale. Check the blood sugar using the machine before your meal. Administer insulin in the following way: Blood sugar Insulin units 100-150 Do not give insulin 150-200 Give 2 Units 201-250 Give 4 units 251-300 Give 6 units 301-350 Give 8 units 351-400 Give 10 units and call Doctor -Do not take your home diabetes pill medication or this can drop your sugar low. Also do not take: statin, sertraline,or lisinopril . these have been discontinued. 2) You also must continue your IV antibiotics. For five more days. You will come to this hospital ([facility]) every day to do this. You will come here on: Thursday (03/03), (03/04), Thursday (03/05), Thursday (03/06), Thursday (03/07). Care You will go home with a tube to help you urinate (reyes catheter) since you are having trouble on your own. This will be checked by a doctor tomorrow. the catheter might need to be removed shortly. Follow up Please follow up with these doctors: -[facility] - [address] [place] [address] - primary care clinic. Please go to the clinic tomorrow 03/03/18. -Dr. Layne, urologist - this week ; to discuss the urinary tube If you develop shortness of breath, or chest pain please go to the hospital. We hope you feel better soon. Your PICC line (line for antibiotics) needs to be removed after you finish your antibiotics. The interventional radiology IR) department will remove it ( Dr. Juarez). Referrals: Clinic, [facility] [Other] - 03/03/18 Anuel Juarez MD [Staff Physician] - Roshan Layne MD [Staff Physician] - 1 Week Disposition: HOME - Home Medications Comprehensive Discharge Medication List: Ambulatory Orders Blood-Glucose Meter [Blood Glucose Meter] 1 each [facility] DAILY #1 each 03/01/18 Ertapenem Sodium [Invanz -] 1 gm IVPB DAILY vial 03/01/18 Insulin Sliding Scale [Novolog Vial Sliding Scale -] 1 vial SQ ACHS #1 vial Blood Sugar Diagnostic [Test Strips] 1 each [facility] DAILY #30 strip 03/02/18 Insulin Detemir [Levemir Flextouch] 10 unit SQ DAILY #5 insuln.pen 03/02/18 Miscellaneous Drug Not In Syst [Outpatient Lab Test] 1 each [facility] ASDIR #1 misc Syrge-Ndl,Ins 0.3 ml Half Jaguar [Insulin Syringe] 1 each [facility] DAILY #100 disp.syrin 03/02/18 This patient is new to me today: No Emergency Visit: No Critical Care patient: No - Discharge Referral [facility]erred to [facility] No
== END 2018-03-02 16:07 | disposition home or self-care (01) | DRG 720 ==
LOC: JER 19:21 → JERBED 02-20 04:13 → J5S 02-20 07:15 → J4S 02-24 17:54
PROVIDERS: ADMIT Internal Medicine; ATTEND Internal Medicine
PROC: 02HV33Z Insertion of Infusion Device into Superior Vena Cava, Percutaneous Approach (ICD-10-PCS; principal; 2018-03-02)
PROC: B518ZZA Fluoroscopy of Superior Vena Cava, Guidance (ICD-10-PCS; 2018-03-02)
DX: A41.9 Sepsis, unspecified organism (principal); N39.0 Urinary tract infection, site not specified; N17.9 Acute kidney failure, unspecified; R33.9 Retention of urine, unspecified; I10 Essential (primary) hypertension; E78.5 Hyperlipidemia, unspecified; E11.9 Type 2 diabetes mellitus without complications; E11.65 Type 2 diabetes mellitus with hyperglycemia; E87.1 Hypo-osmolality and hyponatremia; E87.6 Hypokalemia; E83.51 Hypocalcemia; D72.829 Elevated white blood cell count, unspecified; N31.9 Neuromuscular dysfunction of bladder, unspecified; R10.32 Left lower quadrant pain; I51.7 Cardiomegaly; N13.30 Unspecified hydronephrosis; E83.42 Hypomagnesemia; E88.09 Other disorders of plasma-protein metabolism, not elsewhere classified; J98.11 Atelectasis; M71.22 Synovial cyst of popliteal space [Baker], left knee
CPT/HCPCS: 36415; 36569; 71045-TC-FY; 74176-TC; 76775-TC; 77001-TC-FY; 80048; 80053; 80061; 81003; 81015; 82962; 83036; 83605; 83690; 83721; 83735; 84100; 84132; 84484; 85025; 85651; 85730; 86140; 87040; 87086; 87186; 93005; 93010; 93971-TC; 97116-GP; 97161-GP; 99284-25; C1751; J1644; J7030

== ENCOUNTER 2018-03-03 11:48 | Day surgery (SDC) | payer SELFPAY ==
[2018-03-03] MEDS ORDERED: ERTAPENEM SODIUM 1 GM VIAL ONE (12:09)
[2018-03-03 12:59] VITALS: TEMP 98.1
[2018-03-03] MEDS ORDERED: ERTAPENEM SODIUM 1 GM in SODIUM CHLORIDE 100 ML IVPB ONE (13:15)
[2018-03-03 15:25] VITALS: BP 101/62; PULSE 88
== END 2018-03-03 13:20 | disposition home or self-care (01) ==
LOC: JINFUSION 11:48
PROVIDERS: ATTEND Internal Medicine
DX: A41.9 Sepsis, unspecified organism (principal); N39.0 Urinary tract infection, site not specified; E11.9 Type 2 diabetes mellitus without complications
CPT/HCPCS: 96365

== ENCOUNTER 2018-03-04 11:32 | Day surgery (SDC) | payer SELFPAY ==
[~2018-03-04 11:32] MED LIST: ERTAPENEM SODIUM 1 GM in SODIUM CHLORIDE 100 ML IVPB ONE
[2018-03-04 12:06] VITALS: BP 115/65; PULSE 82; TEMP 98.6
== END 2018-03-04 12:54 | disposition home or self-care (01) ==
LOC: JINFUSION 11:32
PROVIDERS: ATTEND Internal Medicine
DX: A41.9 Sepsis, unspecified organism (principal); N39.0 Urinary tract infection, site not specified; E11.9 Type 2 diabetes mellitus without complications
CPT/HCPCS: 96365

== ENCOUNTER 2018-03-05 11:26 | Day surgery (SDC) | payer SELFPAY ==
[2018-03-05 12:18] VITALS: BP 103/62; PULSE 81; TEMP 98
== END 2018-03-05 12:33 | disposition home or self-care (01) ==
LOC: JINFUSION 11:26
PROVIDERS: ATTEND Internal Medicine
DX: A41.9 Sepsis, unspecified organism (principal); N39.0 Urinary tract infection, site not specified; E11.9 Type 2 diabetes mellitus without complications
CPT/HCPCS: 96365

== ENCOUNTER 2018-03-06 11:26 | Day surgery (SDC) | payer SELFPAY ==
[2018-03-06] MEDS ORDERED: ERTAPENEM SODIUM 1 GM in SODIUM CHLORIDE 50 ML IVPB SCH (12:30)
[2018-03-06 14:49] VITALS: BP 111/59
[2018-03-06 14:50] VITALS: PULSE 73; TEMP 98.4
== END 2018-03-06 14:56 | disposition home or self-care (01) ==
LOC: JINFUSION 11:26 → J7W 11:28 → JINFUSION 14:56
PROVIDERS: ATTEND Internal Medicine
DX: A41.9 Sepsis, unspecified organism (principal); N39.0 Urinary tract infection, site not specified; E11.9 Type 2 diabetes mellitus without complications
CPT/HCPCS: 96365

== ENCOUNTER 2018-03-07 09:50 | Day surgery (SDC) | payer SELFPAY ==
[2018-03-07] MEDS ORDERED: ERTAPENEM SODIUM 1 GM in SODIUM CHLORIDE 50 ML IVPB ONE (10:45)
[2018-03-07 11:30] LABS: BASO % 1.2 % (0-2.0); EOS % 3.9 % (0-4.5); HEMOGLOBIN 10.9 GM/dL (10.7-15.3); LYMPH % 24.6 % (8-40); MCHC 33.1 g/dl (32.0-36.0); MEAN CELL VOLUME 93.5 fl (80-96); MEAN PLT VOLUME 6.7 fl (7.5-11.1); MONO % 8.3 % (3.8-10.2); PLATELET COUNT 425 K/MM3 (134-434); RBC 3.53 M/mm3 (3.60-5.2); RDW 13.6 % (11.6-15.6)
[2018-03-07 13:54] VITALS: BP 110/71
[2018-03-07 13:55] VITALS: PULSE 73; TEMP 98.8
== END 2018-03-07 14:09 | disposition home or self-care (01) ==
LOC: JINFUSION 09:50 → J7W 09:50 → JINFUSION 14:09
PROVIDERS: ATTEND Internal Medicine
DX: A41.9 Sepsis, unspecified organism (principal); N39.0 Urinary tract infection, site not specified; E11.9 Type 2 diabetes mellitus without complications
CPT/HCPCS: 36415; 85025; 96365